=== PATIENT | male | born 1990 | race Caucasian/White ===

== ENCOUNTER 2018-01-15 21:07 | Emergency (ER) | payer OTHER ==
--- NOTE | 2018-01-15 21:54 | ER ---
Nurse's Notes [facility] Name: Will Solano Age: 27 yrs Sex: Male : 1990 Arrival Date: 01/15/2018 Time: 21:17 Bed 10 Private MD: None, None Diagnosis: Otitis media, unspecified, left ear Presentation: 01/15 21:17 Presenting complaint: Patient states: that since Sunday he has been having left ear fc pain and pressure. Is now unable to hear out of the left ear. Also states that he thinks it is full of fluid. Transition of care: patient was not received from another setting of care. Onset of symptoms was January 13, 2018. Risk Assessment: Do you want to hurt yourself or someone else? Patient reports no desire to harm self or others. Initial Sepsis Screen: Does the patient meet any 2 criteria? No. Patient's initial sepsis screen is negative. Does the patient have a suspected source of infection? No. Patient's initial sepsis screen is negative. Care prior to arrival: Medication(s) given: Tylenol, last dose at 1300. 21:17 Method Of Arrival: Ambulatory fc 21:17 Acuity: ELLEN 4 fc Triage Assessment: 21:19 General: Appears uncomfortable, well groomed, Behavior is calm, cooperative, fc appropriate for age. Pain: Complains of pain in left ear Pain currently is 6 out of 10 on a pain scale. Quality of pain is described as pressure, Pain began 2-3 days ago. Is continuous. EENT: Reports pain in left ear ringing alternating with no hearing at all. Neuro: Level of Consciousness is awake, alert, obeys commands, Oriented to person, place, time, situation. Cardiovascular: No deficits noted. Respiratory: No deficits noted. GI: No deficits noted. : No deficits noted. Derm: Skin is pink, warm \T\ dry. Musculoskeletal: Circulation, motion, and sensation intact. Capillary refill < 3 seconds. Historical: - Allergies: 21:19 PENICILLINS; fc - Home Meds: 21:19 None [Active]; fc - PMHx: 21:19 None; fc - PSHx: 21:19 None; fc - Immunization history:: Last tetanus immunization: unknown. - Social history:: Smoking status: Patient/guardian denies using tobacco. - Ebola Screening: : Patient negative for fever greater than or equal to 101.5 degrees Fahrenheit, and additional compatible Ebola Virus Disease symptoms Patient denies exposure to infectious person Patient denies travel to an Ebola-affected area in the 21 days before illness onset. Screenin:21 Abuse screen: Denies threats or abuse. Nutritional screening: No deficits noted. Tuberculosis screening: No symptoms or risk factors identified. Fall Risk None identified. Assessment: 21:41 General: Appears in no apparent distress. comfortable, Behavior is calm, cooperative, ao appropriate for age. Pain: Complains of pain in left ear Pain does not radiate. Pain currently is 8 out of 10 on a pain scale. Neuro: Level of Consciousness is awake, alert, obeys commands, Oriented to person, place, time, situation, Appropriate for age Moves all extremities. Full function Speech is normal, Facial symmetry appears normal. Cardiovascular: Capillary refill < 3 seconds Patient's skin is warm and dry. Respiratory: Airway is patent Respiratory effort is even, unlabored, Respiratory pattern is regular, symmetrical. GI: No signs and/or symptoms were reported involving the gastrointestinal system. Abdomen is non-distended. : No signs and/or symptoms were reported regarding the genitourinary system. EENT: No signs and/or symptoms were reported regarding the EENT system. Derm: Skin is pink, warm \T\ dry. normal, Skin temperature is warm. Musculoskeletal: No signs and/or symptoms reported regarding the musculoskeletal system. Range of motion: intact in all extremities. Vital Signs: 21:21 BP 136 / 95; Pulse 74; Resp 20; Temp 98.6(O); Pulse Ox 99% on R/A; Weight 108.86 kg (R); Height 6 ft. 1 in. (185.42 cm) (R); Pain 6/10; 21:21 Body Mass Index 31.66 (108.86 kg, 185.42 cm) ED Course: 21:17 Patient arrived in ED. 21:18 Triage completed. fc 21:19 None, None is Private Physician. fc 21:21 Arm band placed on Patient placed in an exam room, on a stretcher. fc 21:21 Patient has correct armband on for positive identification. Bed in low position. Call light in reach. 21:22 Lei Da Silva, OZZY is Primary Nurse. ao 21:22 Brian Maddox MD is Attending Physician. tw4 22:09 No provider procedures requiring assistance completed. Patient did not have IV access ao during this emergency room visit. Administered Medications: 22:10 Drug: Cleocin 300 mg Route: PO; ao 22:11 Follow up: Response: Medication administered at discharge. ao Outcome: 21:54 Discharge ordered by . tw4 22:09 Discharged to home ambulatory. ao 22:09 Condition: stable 22:09 Discharge instructions given to patient, Instructed on discharge instructions, follow up and referral plans. Demonstrated understanding of instructions, follow-up care, medications, Prescriptions given X 3. 22:11 Patient left the ED. ao Signatures: Chinyere Maria RN RN Lei Da Silva RN RN Brian Quezada MD MD tw4
--- NOTE | 2018-01-15 21:54 | EDPHYS ---
Physician Documentation [facility] Name: Will Solano Age: 27 yrs Sex: Male : 1990 Arrival Date: 01/15/2018 Time: 21:17 Bed 10 Private MD: None, None ED Physician Brian Maddox HPI: 01/15 21:44 This 27 yrs old Male presents to ER via Ambulatory with complaints of Ear tw4 Pain. 21:44 The complaints affect the left ear. Onset: The symptoms/episode began/occurred tw4 yesterday. Modifying factors: The symptoms are alleviated by nothing, the symptoms are aggravated by nothing. Associated signs and symptoms: The patient has no apparent associated signs or symptoms. Severity of symptoms: At their worst the symptoms were very mild in the emergency department the symptoms are unchanged. The patient has not experienced similar symptoms in the past. Historical: - Allergies: 21:19 PENICILLINS; fc - Home Meds: 21:19 None [Active]; fc - PMHx: 21:19 None; fc - PSHx: 21:19 None; fc - Immunization history:: Last tetanus immunization: unknown. - Social history:: Smoking status: Patient/guardian denies using tobacco. - Ebola Screening: : Patient negative for fever greater than or equal to 101.5 degrees Fahrenheit, and additional compatible Ebola Virus Disease symptoms Patient denies exposure to infectious person Patient denies travel to an Ebola-affected area in the 21 days before illness onset. ROS: 21:44 Constitutional: Negative for fever, chills, and weight loss. tw4 21:44 ENT: Positive for ear pain, Negative for injury or acute deformity, drainage from ear(s), foreign body sensation, Gum pain hearing loss, pulling at ears, Teeth pain Exam: 21:44 Constitutional: This is a well developed, well nourished patient who is awake, alert, tw4 and in no acute distress. Head/Face: Normocephalic, atraumatic. 21:44 ENT: External ear(s): are unremarkable, Ear canal(s): are normal, TM's: decreased mobility, on the left, dullness, on the left, erythema, that is moderate, on the left, fluid levels, on the left. Vital Signs: 21:21 BP 136 / 95; Pulse 74; Resp 20; Temp 98.6(O); Pulse Ox 99% on R/A; Weight 108.86 kg (R); Height 6 ft. 1 in. (185.42 cm) (R); Pain 6/10; 21:21 Body Mass Index 31.66 (108.86 kg, 185.42 cm) MDM: 21:22 Patient medically screened. tw4 21:44 Data reviewed: vital signs, nurses notes. Counseling: I had a detailed discussion with [facility] the patient and/or guardian regarding: the historical points, exam findings, and any diagnostic results supporting the discharge/admit diagnosis. Administered Medications: 22:10 Drug: Cleocin 300 mg Route: PO; ao 22:11 Follow up: Response: Medication administered at discharge. ao Disposition: 01/15/18 21:54 Discharged to Home. Impression: Otitis media, unspecified, left ear. - Condition is Stable. - Discharge Instructions: Otitis Media, Adult. - Prescriptions for Cleocin 300 mg Oral Capsule - take 1 capsule by ORAL route every 6 hours for 10 days; 40 capsule. Ibuprofen 800 mg Oral Tablet - take 1 tablet by ORAL route every 8 hours As needed take with food; 30 tablet. Tylenol- Codeine #3 300-30 mg Oral Tablet - take 2 tablet by ORAL route every 6 hours As needed; 30 tablet. - Medication Reconciliation Form, Thank You Letter, Antibiotic Education, Prescription Opioid Use form. - Follow up: Private Physician; When: As needed; Reason: Recheck today's complaints, Re-evaluation by your physician. - Problem is new. - Symptoms have improved. Signatures: Chinyere Maria RN RN Lei Da Silva RN RN Brian Quezada MD MD tw4 Corrections: (The following items were deleted from the chart) 22:11 21:54 01/15/2018 21:54 Discharged to Home. Impression: Otitis media, unspecified, left ao ear. Condition is Stable. Forms are Medication Reconciliation Form, Thank You Letter, Antibiotic Education, Prescription Opioid Use. Follow up: Private Physician; When: As needed; Reason: Recheck today's complaints, Re-evaluation by your physician. Problem is new. Symptoms have improved. tw4 22:11 22:11 01/15/2018 21:54 Discharged to Home. Impression: Otitis media, unspecified, left ao ear. Condition is Stable. Discharge Instructions: Otitis Media, Adult. Prescriptions for Cleocin 300 mg Oral Capsule - take 1 capsule by ORAL route every 6 hours for 10 days; 40 capsule, Ibuprofen 800 mg Oral Tablet - take 1 tablet by ORAL route every 8 hours As needed take with food; 30 tablet, Tylenol-Codeine #3 300-30 mg Oral Tablet - take 2 tablet by ORAL route every 6 hours As needed; 30 tablet. and Forms are Medication Reconciliation Form, Thank You Letter, Antibiotic Education, Prescription Opioid Use. Follow up: Private Physician; When: As needed; Reason: Recheck today's complaints, Re-evaluation by your physician. Problem is new. Symptoms have improved. ao
[2018-01-15] MEDS ORDERED: CLINDAMYCIN HCL 150 MG CAP ONE (22:04)
== END 2018-01-15 22:11 | disposition home or self-care (01) ==
LOC: ER 21:07
DX: H66.92 Otitis media, unspecified, left ear (principal); Z88.0 Allergy status to penicillin
CPT/HCPCS: 99283

== ENCOUNTER 2021-09-16 08:15 | Emergency (ER) | payer OTHER ==
--- OUTSIDE RECORDS SUMMARY | 2021-09-16 08:19 | XMS REPORT | Continuity of Care Document ---
:1990 Author Organization [facility] t Address [address] [place] [address] Care Team Providers Name Role Phone Curt Afsaneh Primary Care Physician Lynette PRECIADO, T Attending Clinician Unavailable Only, Db Test Attending Clinician Unavailable David ELEVATOR SERVICE TECHNICIAN Attending Clinician DAVID Attending Clinician Unavailable Payers Payer Name Policy Type Policy Number Effective Date Expiration Date S ource Problems This patient has no known problems. Allergies, Adverse Reactions, Alerts Allergy Allergy Status Severity Reaction(s) Onset Inactive Treating Comm ents Source Name Type Date Date Clinician NO KNOWN Drug Active [facility] ALLERGIE Class ity of S [facility] Social History Social Habit Start Date Stop Date Quantity Comments Source Exposure to Yes [facility] SARS-CoV-2 (event) Medica l Branch Sex Assigned At [birth year] [facility] 00:00:00 00:00:00 [facility] Smoking Status Start Date Stop Date Source Unknown if ever smoked [facility] Medications Ordered Filled Start Stop Current Ordering Indication Dosage Frequency Signature Comments Components Source Medication Medication Date Date Medication? Clinician (SIG) Name Name No known 2020-07 No Univers medications 2-27 ity of 10:19: [address] Branch No known 2020-07 No Univers medications 2-27 ity of 10:19: [address] Procedures This patient has no known procedures. Encounters Start End Encounter Admission Attending Care Care Encounter Source Date/Time Date/Time Type Type Clinicians Facility Department ID 2021-07-12 2021-07-12 Letter MCKENZIE Ojeda [id number] Univers 00:00:00 00:00:00 (Out) Gosia FITZGERALD [id number] it y of [facility] [id number] [place] as [id number] [address] 2021-07-11 2021-07-11 Laboratory Only, Ang Db Test [facility] [id number] Univers 09:45:00 10:00:00 [id number] [facility] [id number] [place] as JANICE?BLEA [id number] [address] MEDICAL OFFICE BUILDING 2021-07-11 2021-07-11 Outpatient [facility] [id number] Univers 09:45:00 09:45:00 [id number] y [facility] 2021-07-11 2021-07-11 Outpatient R DAVID [facility] [id number] Univers 09:45:00 09:45:00 ANGELY rose o f [facility] 2020-03-02 2020-03-02 Outpatient R [facility] [id number] Univers 08:20:00 08:20:00 [facility] Results This patient has no known results.
[2021-09-16] MEDS ORDERED: NA CHLORIDE 0.9% 1,000 ML ONE (08:46)
[2021-09-16] MEDS ORDERED: FAMOTIDINE 20 MG/2 ML VIAL IV ONE (08:46)
[2021-09-16] MEDS ORDERED: DIPHENHYDRAMINE 50 MG/ML VIAL ONE (08:46)
[2021-09-16] MEDS ORDERED: dexAMETHasone 10 MG/ML VIAL ONE (08:46)
--- NOTE | 2021-09-16 11:42 | EDPHYS ---
Physician Documentation [facility] Name: Will Solano Age: 30 yrs Sex: Male : 1990 Arrival Date: 09/16/2021 Time: 08:16 Bed 5 Private MD: SONJA Physician Kwame Martins HPI: 09/16 08:32 This 30 yrs old Male presents to ER via Ambulatory with complaints of Allergic Reaction.jmm 08:32 The patient presents with localized swelling. Onset: The symptoms/episode jmm began/occurred today. Associated signs and symptoms: Pertinent positives: Rash. Possible causes: JOHN inhibitor. This is a 30-year-old male with history of hypertension that presents ER with complaints of swelling to his tongue, throat beginning earlier today. Also complains of rash on his chest and arms. Patient does take losartan daily for blood pressure but has not taken it today. Also recently finished a course of azithromycin.. Historical: - Allergies: 08:20 PENICILLINS; ww - Home Meds: 08:20 losartan 25 mg oral tab [Active]; Flonase 50 mcg/actuation Nasal spsn [Active]; ww - PMHx: 08:20 Hypertensive disorder; ww - Immunization history:: Adult Immunizations up to date. - Social history:: Smoking status: Patient denies any tobacco usage or history of. ROS: 08:32 Constitutional: Negative for fever, chills, and weight loss, Cardiovascular: Negative jmm for chest pain, palpitations, and edema, Respiratory: Negative for shortness of breath, cough, wheezing, and pleuritic chest pain. 08:32 Back: Negative for injury and pain. 08:32 ENT: Positive for sore throat. 08:32 Skin: Positive for rash. 08:32 All other systems are negative. Exam: 08:32 Constitutional: This is a well developed, well nourished patient who is awake, alert, jmm and in no acute distress. Head/Face: atraumatic. Eyes: EOMI, no conjunctival erythema appreciated ENT: Moist Mucus Membranes Neck: Trachea midline, Supple 08:32 Cardiovascular: Regular rate and rhythm. No edema appreciated Respiratory: Normal respirations, no respiratory distress appreciated Abdomen/GI: Non distended, soft Back: Normal ROM MS/ Extremity: Moves all extremities, no obvious deformities appreciated, no edema noted to the lower extremities 08:32 ENT: No pharyngeal edema no pharyngeal edema noted. 08:32 Skin: Rash rash noted to the chest and the arms. 08:32 Neuro: Orientation: is normal, Mentation: is normal, Memory: is normal. 08:32 Psych: Behavior/mood is pleasant, cooperative. Vital Signs: 08:18 BP 149 / 88; Pulse 117; Resp 16; Temp 98.1; Pulse Ox 97% ; Weight 113.4 kg; Height 6 ww ft. 1 in. (185.42 cm); 09:39 BP 129 / 79; Pulse 66; Resp 15; Pulse Ox 98% ; bp 10:24 BP 122 / 84; Pulse 76; Resp 18; Pulse Ox 97% ; Pain 0/10; jh6 11:36 BP 124 / 82; Pulse 85; Resp 20; Pulse Ox 98% ; bp 08:18 Body Mass Index 32.98 (113.40 kg, 185.42 cm) ww MDM: 08:24 Patient medically screened. [facility] 11:41 Data reviewed: vital signs, nurses notes. Counseling: I had a detailed discussion with jez the patient and/or guardian regarding: the historical points, exam findings, and any diagnostic results supporting the discharge/admit diagnosis, lab results, the need for outpatient follow up, to return to the emergency department if symptoms worsen or persist or if there are any questions or concerns that arise at home. ED course: Patient is alert and nontoxic in appearance in the ED. Rash is resolved. No pharyngeal edema appreciated on reexamination. Patient states feeling much better. Patient vies follow-up PCP and otherwise given strict return precautions. Patient understood agrees plan of care.. 04 08:37 Order name: Saline Lock; Complete Time: 08:38 [facility] Administered Medications: 08:45 Drug: NS 0.9% 1000 ml Route: IV; Rate: 1 bolus; Site: left antecubital; bp 11:58 Follow up: IV Status: Completed infusion; IV Intake: 1000ml bp 08:45 Drug: Pepcid (famotidine) 20 mg Route: IVP; Site: left antecubital; bp 11:58 Follow up: Response: Marked relief of symptoms bp 08:45 Drug: Decadron - Dexamethasone 10 mg Route: IVP; Site: left antecubital; bp 11:58 Follow up: Response: Marked relief of symptoms bp 08:45 Drug: diphenhydrAMINE 12.5 mg Route: IVP; Site: left antecubital; bp 11:59 Follow up: Response: Marked relief of symptoms bp Disposition Summary: 09/16/21 11:41 Discharge Ordered Location: Home jm Condition: Stable jmm Diagnosis - Rash and other nonspecific skin eruption jmm Followup: jmm - With: Private Physician - When: 2 - 3 days - Reason: Recheck today's complaints, Continuance of care, Re-evaluation by your physician Discharge Instructions: - Discharge Summary Sheet jm - Rash, Adult jmm Forms: - Medication Reconciliation Form [facility] - Thank You Letter [facility] - Antibiotic Education m - Prescription Opioid Use jm Prescriptions: - EpiPen 0.3 mg/0.3 mL Injection auto-injector - inject 0.3 milliliter by INTRAMUSCULAR route as directed as needed for jmm anaphylaxis; 1 Pen Needle; Refills: 0, Product Selection Permitted - Hydroxyzine HCl 25 mg Oral Tablet - take 1 tablet by ORAL route every 6 hours As needed; 30 tablet; Refills: 0, [facility] Product Selection Permitted - Prednisone 20 mg Oral Tablet - take 3 tablets by ORAL route once daily for 5 days; 15 tablet; Refills: 0, [facility] Product Selection Permitted Signatures: Kwame Martins MD MD cha Mickail, Joel, PA PA jmm Peltier, Brian, Jennifer Barnard RN, RN RN ww
--- NOTE | 2021-09-16 11:42 | ER ---
Nurse's Notes [facility] Name: Will Solano Age: 30 yrs Sex: Male : 1990 Arrival Date: 09/16/2021 Time: 08:16 Bed 5 Private MD: Diagnosis: Rash and other nonspecific skin eruption Presentation: 09/16 08:18 Chief complaint: Patient states: Noticed swelling in his throat and tongue this ww morning. Complaining of itching in the groin region, arms, back and legs. Denies any shortness of breath. He has currently been taking a z-little and flonase for an ear infection. He had a previous reaction 2 months ago. Coronavirus screen: Vaccine status: Patient reports receiving the 2nd dose of the covid vaccine. Ebola Screen: Patient denies travel to an Ebola-affected area in the 21 days before illness onset. Onset: The symptoms/episode began/occurred acutely, suddenly. Anaphylaxis evaluation, angioedema. Initial Sepsis Screen: Does the patient meet any 2 criteria? No. Patient's initial sepsis screen is negative. Does the patient have a suspected source of infection? No. Patient's initial sepsis screen is negative. Risk Assessment: Do you want to hurt yourself or someone else? Patient reports no desire to harm self or others. Onset of symptoms was September 16, 2021. 08:18 Method Of Arrival: Ambulatory 08:18 Acuity: ELLEN 3 08:20 Chief complaint:. Triage Assessment: 08:20 General: Appears uncomfortable, Behavior is cooperative. Pain: Denies pain. EENT: ww Throat is reddened. Neuro: Level of Consciousness is awake, alert, obeys commands, Oriented to person, place, time, situation, Gait is steady, Speech is normal. Cardiovascular: Chest pain is denied. Respiratory: Airway is patent Respiratory effort is even, unlabored, Respiratory pattern is regular, symmetrical. Derm: Skin is healthy with good turgor, Rash noted that is itchy. Musculoskeletal: No signs and/or symptoms reported regarding the musculoskeletal system. Historical: - Allergies: 08:20 PENICILLINS; ww - Home Meds: 08:20 losartan 25 mg oral tab [Active]; Flonase 50 mcg/actuation Nasal spsn [Active]; ww - PMHx: 08:20 Hypertensive disorder; ww - Immunization history:: Adult Immunizations up to date. - Social history:: Smoking status: Patient denies any tobacco usage or history of. Screenin:38 Abuse screen: Denies threats or abuse. Denies injuries from another. Nutritional ww screening: No deficits noted. Tuberculosis screening: No symptoms or risk factors identified. Fall Risk None identified. Assessment: 08:20 General: SEE TRIAGE NOTE. bp 09:30 Respiratory: Airway is patent Breath sounds are clear bilaterally. bp 10:22 Reassessment: Patient and/or family updated on plan of care and expected duration. Pain jh6 level reassessed. Patient is alert, oriented x 3, equal unlabored respirations, skin warm/dry/pink. pt reports that hes not feeling as tight and that the swelling is decreased Patient states feeling better. Patient states symptoms have improved. 11:36 Reassessment: Patient and/or family updated on plan of care and expected duration. Pain bp level reassessed. Patient states feeling better. Patient states symptoms have improved. 11:57 Reassessment: PT D/C HOME AMBULATORY, DX WITH RASH. Respiratory: Airway is patent bp Respiratory effort is even, unlabored. Vital Signs: 08:18 BP 149 / 88; Pulse 117; Resp 16; Temp 98.1; Pulse Ox 97% ; Weight 113.4 kg; Height 6 ww ft. 1 in. (185.42 cm); 09:39 BP 129 / 79; Pulse 66; Resp 15; Pulse Ox 98% ; bp 10:24 BP 122 / 84; Pulse 76; Resp 18; Pulse Ox 97% ; Pain 0/10; jh6 11:36 BP 124 / 82; Pulse 85; Resp 20; Pulse Ox 98% ; bp 08:18 Body Mass Index 32.98 (113.40 kg, 185.42 cm) ww ED Course: 08:16 Patient arrived in ED. am2 08:19 Humble Hernandez PA is PHCP. [facility] 08:19 Kwame Martins MD is Attending Physician. [facility] 08:20 Triage completed. ww 08:20 Arm band placed on right wrist. ww 08:28 Efrem Rodriguez, OZZY is Primary Nurse. bp 08:38 Patient has correct armband on for positive identification. Bed in low position. Call ww light in reach. Side rails up X 1. color television console monitor on. Pulse ox on. NIBP on. 08:38 Inserted saline lock: 20 gauge in left antecubital area, using aseptic technique. Blood ww collected. 11:57 No provider procedures requiring assistance completed. IV discontinued, intact, bp bleeding controlled, No redness/swelling at site. Pressure dressing applied. Administered Medications: 08:45 Drug: NS 0.9% 1000 ml Route: IV; Rate: 1 bolus; Site: left antecubital; bp 11:58 Follow up: IV Status: Completed infusion; IV Intake: 1000ml bp 08:45 Drug: Pepcid (famotidine) 20 mg Route: IVP; Site: left antecubital; bp 11:58 Follow up: Response: Marked relief of symptoms bp 08:45 Drug: Decadron - Dexamethasone 10 mg Route: IVP; Site: left antecubital; bp 11:58 Follow up: Response: Marked relief of symptoms bp 08:45 Drug: diphenhydrAMINE 12.5 mg Route: IVP; Site: left antecubital; bp 11:59 Follow up: Response: Marked relief of symptoms bp Intake: 11:58 IV: 1000ml; Total: 1000ml. bp Outcome: 11:41 Discharge ordered by MD. story 11:57 Discharged to home ambulatory. bp 11:57 Condition: stable 11:57 Discharge instructions given to patient, Instructed on discharge instructions, follow up and referral plans. medication usage, Demonstrated understanding of instructions, follow-up care, medications, Prescriptions given X 3. 11:59 Patient left the ED. bp Signatures: Humble Hernandez PA PA jmm Moreno, Amanda am2 Efrem Rodriguez RN RN bp Jackie Collins RN RN 6 Jennifer Bergman, OZZY RN ww Corrections: (The following items were deleted from the chart) 08:22 08:18 Chief complaint: Patient states: Noticed swelling in his throat and tongue this ww morning. Complaining of itching in the groin region, arms, back and legs. Denies any shortness of breath. ww
[2021-09-16 12:03] VITALS: TEMP 98.1
[2021-09-16 12:07] VITALS: BP 124/82; O2SAT 98
== END 2021-09-16 11:59 | disposition home or self-care (01) ==
LOC: ER 08:15
DX: R21 Rash and other nonspecific skin eruption (principal); I10 Essential (primary) hypertension; Z88.0 Allergy status to penicillin
CPT/HCPCS: 96361; 96375; 96374; 99284; J1200; J1100; J7030

== ENCOUNTER 2021-09-21 10:35 | Observation (INO) | payer OTHER ==
--- OUTSIDE RECORDS SUMMARY | 2021-09-21 10:38 | XMS REPORT | Continuity of Care Document ---
:1990 Author Organization [facility] t Address [address] [place] [address] Care Team Providers Name Role Phone Curt Afsaneh Primary Care Physician Lynette PRECIADO, T Attending Clinician Unavailable Only, Db Test Attending Clinician Unavailable David DIRECTOR [employer] Attending Clinician DAVID Attending Clinician Unavailable Payers Payer Name Policy Type Policy Number Effective Date Expiration Date S ource Problems This patient has no known problems. Allergies, Adverse Reactions, Alerts Allergy Allergy Status Severity Reaction(s) Onset Inactive Treating Comm ents Source Name Type Date Date Clinician NO KNOWN Drug Active Univers ALLERGIE Class ity of S [facility] Social History Social Habit Start Date Stop Date Quantity Comments Source Exposure to Yes [facility] SARS-CoV-2 (event) Medica l Branch Sex Assigned At [birth year] [facility] 00:00:00 00:00:00 [facility] Smoking Status Start Date Stop Date Source Unknown if ever smoked [facility] Medications Ordered Filled Start Stop Current Ordering Indication Dosage Frequency Signature Comments Components Source Medication Medication Date Date Medication? Clinician (SIG) Name Name No known 2020-07 No Univers medications 2-27 ity of 10:19: [address] Branch No known 2020-07 No Univers medications 2-27 ity of 10:19: [address] Procedures This patient has no known procedures. Encounters Start End Encounter Admission Attending Care Care Encounter Source Date/Time Date/Time Type Type Clinicians Facility Department ID 2021-07-12 2021-07-12 Letter MCKENZIE Ojeda [id number] Univers 00:00:00 00:00:00 (Out) Gosia FITGZERALD [id number] it y of [facility] [id number] Dexter as [phone] [address] 2021-07-11 2021-07-11 Laboratory Only, Ang Db Test [facility] [id number] Univers 09:45:00 10:00:00 [id number] [id number] Dexter as JANICE?BLEA [phone] [address] MEDICAL OFFICE BUILDING 2021-07-11 2021-07-11 Outpatient [facility] [id number] Univers 09:45:00 09:45:00 [id number] [facility] 2021-07-11 2021-07-11 Outpatient R DAVID [facility] [id number] Univers 09:45:00 09:45:00 ANGELY rose o f [facility] 2020-03-02 2020-03-02 Outpatient R [facility] [id number] Univers 08:20:00 08:20:00 [facility] Results This patient has no known results.
[2021-09-21] MEDS ORDERED: DIPHENHYDRAMINE 50 MG/ML VIAL ONE (10:44)
[2021-09-21] MEDS ORDERED: METHYLPREDNISOLONE 125 MG INJ ONE (10:44)
[2021-09-21] MEDS ORDERED: FAMOTIDINE 20 MG/2 ML VIAL IV ONE (10:44)
[2021-09-21] MEDS ORDERED: EPINEPHRINE/PF 1 MG/ML AMP ONE (10:45)
[2021-09-21] MEDS ORDERED: NA CHLORIDE 0.9% 1,000 ML ONE ×2 (10:45→10:48)
[2021-09-21] MEDS ORDERED: IPRATROPIUM BROM 0.5MG/2.5ML ONE (10:57)
[2021-09-21 10:59] LABS: Absolute Lymphocytes (CBC) 6.2 K/uL (0.7-4.9); Hematocrit 45.9 % (39.6-49.0); Lymphocytes % 36.6 % (15.3-44.8); MPV 7.6 fL (7.6-11.3); RBC Red Blood Cell Count 5.42 M/uL (4.33-5.43)
[2021-09-21 11:03] LABS: Protime INR 1.04
[2021-09-21 11:19] LABS: ALT/SGPT 57 U/L (12-78); AST/SGOT 16 U/L (15-37); Alkaline Phosphatase 56 U/L (45-117); BUN Blood Urea Nitrogen 15 mg/dL (7-18); Bicarbonate 25 mmol/L (21-32); Bilirubin Direct 0.2 mg/dL (0-0.2); Bilirubin Total 0.7 mg/dL (0.2-1.0); Glucose Level 154 mg/dL (74-106); Magnesium 2.5 mg/dL (1.8-2.4); NT PRO-BNP 20 pg/mL (<125); Potassium 3.7 mmol/L (3.5-5.1); Protein, Total 7.6 g/dL (6.4-8.2); Sodium Level 139 mmol/L (136-145)
[2021-09-21 11:23] LABS: Troponin High Sensitivity < 3.00 pg/mL (<58.9)
[2021-09-21 11:47] LABS: Blood Morphology Comment NOT SEEN (NOT SEEN); Platelet Estimate ADEQ
--- NOTE | 2021-09-21 11:50 | ER ---
Nurse's Notes [facility] Name: Will Solano Age: 30 yrs Sex: Male : 1990 Arrival Date: 09/21/2021 Time: 10:37 Bed 13 Private MD: Diagnosis: Urticaria, unspecified;Anaphylactic reaction due to adverse effect of correct drug or medicament properly administered, initial encounter;Hypotension, unspecified Presentation: 09/21 10:37 Chief complaint: Witnessed fall by ER registration upon entrance to ER. Pt was found on aa5 prone position, pt states "I just fell because I was lightheaded", pt was assisted to ER stretcher and moved to ER room 13. Pt states "I was just seen here for an allergic reaction a few days ago and I started with a reaction again about 30 minutes ago so I took a hydroxyzine and a Benadryl". Pt pale and clammy at this time. Pt c/o rash and states "my throat feels a little swollen". Pt denies head injury during fall. 10:37 Anaphylaxis evaluation, the patient reports or I have noted the following symptoms aa5 which indicate a significant risk of anaphylaxis: hypotension lightheadedness. Onset of symptoms was September 21, 2021. 10:37 Acuity: ELLEN 2 aa5 10:37 Method Of Arrival: Stretcher aa5 Historical: - Allergies: 10:37 PENICILLINS; aa5 - PMHx: 10:37 Hypertensive disorder; aa5 - Family history:: not pertinent. Assessment: 10:40 General: Appears distressed, diaphoretic, dusky color in face, hands. Behavior is calm, cb5 cooperative. Pain: Denies pain. Neuro: Level of Consciousness is awake, alert, obeys commands, Oriented to person, place, time, situation, Aadc Plans Staff Officer are equal bilaterally Moves all extremities. Speech is normal, Facial symmetry appears normal. Cardiovascular: skin diaphoretic to the touch, nail beds slightly dusky in color, capillary refill <3 sec. Lips dusky in color.. Rhythm is sinus rhythm. Respiratory: Airway is patent Respiratory effort is even, Breath sounds are clear. GI: No deficits noted. : No deficits noted. EENT: No deficits noted. Derm: small abrasion to left knee. Musculoskeletal: No deficits noted. 11:56 Reassessment: Patient and/or family updated on plan of care and expected duration. Pain cb5 level reassessed. 14:32 General: attempted to call report to floor nurse, she will call back. cb5 Vital Signs: 10:36 BP 74 / 45; Pulse 57; Resp 20; Pulse Ox 99% ; cb5 10:42 BP 96 / 42; Pulse 66; Resp 16; Pulse Ox 98% ; cb5 10:55 BP 108 / 73; Pulse 74; Resp 18; Pulse Ox 100% ; cb5 11:00 BP 99 / 84; Pulse 74; Resp 18; Pulse Ox 100% ; cb5 11:10 BP 127 / 90; Pulse 73; Resp 16; Pulse Ox 100% ; cb5 11:20 BP 121 / 81; Pulse 65; Resp 18; Pulse Ox 100% ; cb5 11:20 BP 122 / 83; Pulse 70; Resp 16; Pulse Ox 100% ; cb5 11:25 BP 137 / 86; Pulse 77; Resp 16; Pulse Ox 100% ; cb5 11:45 BP 138 / 90; Pulse 93; Resp 18; Pulse Ox 100% ; Pain 0/10; cb5 12:30 BP 144 / 95; Pulse 114; Resp 16; Pulse Ox 98% ; Pain 0/10; cb5 ED Course: 10:37 Patient arrived in ED. bd 10:37 Arm band placed on Patient placed in an exam room, on a stretcher. aa5 10:38 Kwame Martins MD is Attending Physician. urbano 10:49 Inserted saline lock: 20 gauge in right antecubital area, using aseptic technique. ap3 Blood collected. 10:50 Basic Metabolic Panel Sent. ab2 10:50 CBC with Diff Sent. ab2 10:50 LFT's Sent. ab2 10:50 Magnesium Sent. ab2 10:50 NT PRO-BNP Sent. ab2 10:51 PT-INR Sent. ab2 10:51 Troponin HS Sent. ab2 10:53 Triage completed. aa5 10:55 Inserted saline lock: 20 gauge in left antecubital area, using aseptic technique. ap3 11:16 Anabel Dougherty, OZZY is Primary Nurse. cb5 11:41 Uday Garg MD is Hospitalizing Provider. urbano 12:48 X-ray completed. Portable x-ray completed in exam room. Patient tolerated procedure mh1 well. Administered Medications: 10:49 Drug: Pepcid (famotidine) 40 mg Route: IVP; Site: right antecubital; ab2 10:49 CANCELLED (Duplicate Order): Benadryl (diphenhydrAMINE) 25 mg IVP once ab2 10:49 CANCELLED (Duplicate Order): SOLU-Medrol (methylPrednisoLONE) 125 mg IVP once ab2 10:49 CANCELLED (Duplicate Order): NS 0.9% 2000 ml IV at 1 bolus Per protocol; 1000 mL bolus ab2 10:49 CANCELLED (Duplicate Order): Pepcid (famotidine) 40 mg IVP once; dilute with 10 mL 0.9% ab2 NaCl; give over 2 minutes 10:50 Drug: NS 0.9% 1000 ml Route: IV; Rate: 1 bolus; Site: left antecubital; ab2 10:50 Drug: NS 0.9% 1000 ml Route: IV; Rate: 1 bolus; Site: right antecubital; ab2 10:50 Drug: Benadryl (diphenhydrAMINE) 25 mg Route: IVP; Site: left antecubital; ab2 10:50 Drug: SOLU-Medrol (methylPrednisoLONE) 125 mg Route: IVP; Site: left antecubital; ab2 10:52 Drug: EPINEPHrine 1mg/mL 1:1,000 0.4 ml Route: Sub-Q; Site: right upper arm; ab2 10:57 Drug: Albuterol - atroVENT (ipratropium) (3:1) (2.5 mg - 0.5 mg) 3 ml Route: Nebulizer; ab2 Outcome: 11:50 Decision to Hospitalize by Provider. urbano 14:52 Patient left the ED. ld1 Signatures: Opal Amado Corey, MD MD cha Harvey, Martha 1 Dana Aiken, RN RN aa5 Grecia Mccollum RN RN maría3 Barbie Thomas RN RN ld1 Anabel Dougherty, OZZY RN cb5 Donald Mensah ab2
--- NOTE | 2021-09-21 11:50 | EDPHYS ---
Physician Documentation [facility] Name: Will Solano Age: 30 yrs Sex: Male : 1990 Arrival Date: 09/21/2021 Time: 10:37 Bed 13 Private MD: ED Physician Kwame Martins HPI: 09/21 10:50 This 30 yrs old Male presents to ER via Unassigned with complaints of urbano Allergic Reaction. 10:50 The patient presents with itching, localized swelling, rash, redness of skin, runny urbano nose, shortness of breath, swelling of the lips. Onset: The symptoms/episode began/occurred just prior to arrival. Associated signs and symptoms: Pertinent positives: nausea, shortness of breath, syncope. Possible causes: losartan. The patient has experienced near-syncope, almost passed out, felt dizzy, felt faint, felt generally weak. At home the patient or guardian has treated the symptoms with Benadryl. Severity of symptoms: At their worst the symptoms were moderate in the emergency department the symptoms are unchanged. Historical: - Allergies: 10:37 PENICILLINS; aa5 - PMHx: 10:37 Hypertensive disorder; aa5 - Family history:: not pertinent. ROS: 10:50 Constitutional: Negative for fever, chills, and weight loss, Eyes: Negative for injury, urbano pain, redness, and discharge, ENT: Negative for injury, pain, and discharge, Neck: Negative for injury, pain, and swelling, Cardiovascular: Negative for chest pain, palpitations, and edema, Respiratory: Negative for shortness of breath, cough, wheezing, and pleuritic chest pain, Abdomen/GI: Negative for abdominal pain, nausea, vomiting, diarrhea, and constipation, Back: Negative for injury and pain, : Negative for injury, bleeding, discharge, and swelling, MS/Extremity: Negative for injury and deformity, Psych: Negative for depression, anxiety, suicide ideation, homicidal ideation, and hallucinations, Allergy/Immunology: Negative for hives, rash, and allergies, Endocrine: Negative for neck swelling, polydipsia, polyuria, polyphagia, and marked weight changes, Hematologic/Lymphatic: Negative for swollen nodes, abnormal bleeding, and unusual bruising. 10:50 Skin: Positive for diaphoresis, pallor. 10:50 Neuro: Positive for near syncope. Exam: 10:50 Constitutional: This is a well developed, well nourished patient who is awake, alert, urbano and in no acute distress. Head/Face: Normocephalic, atraumatic. Eyes: Pupils equal round and reactive to light, extra-ocular motions intact. Lids and lashes normal. Conjunctiva and sclera are non-icteric and not injected. Cornea within normal limits. Periorbital areas with no swelling, redness, or edema. ENT: Nares patent. No nasal discharge, no septal abnormalities noted. Tympanic membranes are normal and external auditory canals are clear. Oropharynx with no redness, swelling, or masses, exudates, or evidence of obstruction, uvula midline. Mucous membranes moist. Neck: Trachea midline, no thyromegaly or masses palpated, and no cervical lymphadenopathy. Supple, full range of motion without nuchal rigidity, or vertebral point tenderness. No Meningismus. Chest/axilla: Normal chest wall appearance and motion. Nontender with no deformity. No lesions are appreciated. Cardiovascular: Regular rate and rhythm with a normal S1 and S2. No gallops, murmurs, or rubs. Normal PMI, no JVD. No pulse deficits. Respiratory: Lungs have equal breath sounds bilaterally, clear to auscultation and percussion. No rales, rhonchi or wheezes noted. No increased work of breathing, no retractions or nasal flaring. Abdomen/GI: Soft, non-tender, with normal bowel sounds. No distension or tympany. No guarding or rebound. No evidence of tenderness throughout. Back: No spinal tenderness. No costovertebral tenderness. Full range of motion. Male : Normal genitalia with no discharge or lesions. MS/ Extremity: Pulses equal, no cyanosis. Neurovascular intact. Full, normal range of motion. Psych: Awake, alert, with orientation to person, place and time. Behavior, mood, and affect are within normal limits. 10:50 Skin: Appearance: Color: flushed, Temperature: normal temperature, Moisture: diaphoretic, petechiae, not noted, ecchymosis, not noted, drug rash, and is diffusely located. 10:55 ECG was reviewed by the Attending Physician. [facility] 14:33 ECG was reviewed by the Attending Physician. [facility] Vital Signs: 10:36 BP 74 / 45; Pulse 57; Resp 20; Pulse Ox 99% ; cb5 10:42 BP 96 / 42; Pulse 66; Resp 16; Pulse Ox 98% ; cb5 10:55 BP 108 / 73; Pulse 74; Resp 18; Pulse Ox 100% ; cb5 11:00 BP 99 / 84; Pulse 74; Resp 18; Pulse Ox 100% ; cb5 11:10 BP 127 / 90; Pulse 73; Resp 16; Pulse Ox 100% ; cb5 11:20 BP 121 / 81; Pulse 65; Resp 18; Pulse Ox 100% ; cb5 11:20 BP 122 / 83; Pulse 70; Resp 16; Pulse Ox 100% ; cb5 11:25 BP 137 / 86; Pulse 77; Resp 16; Pulse Ox 100% ; cb5 11:45 BP 138 / 90; Pulse 93; Resp 18; Pulse Ox 100% ; Pain 0/10; cb5 12:30 BP 144 / 95; Pulse 114; Resp 16; Pulse Ox 98% ; Pain 0/10; cb5 MDM: 10:38 Patient medically screened. urbano 10:54 Differential diagnosis: anaphylaxis, angioedema, Arrhythmias bronchospasm, Seizure urbano urticaria. Differential Diagnosis: cardiac arrhythmia, cerebrovascular accident, drug effect, GI bleed, sepsis, transient ischemic attack, vasovagal episode. Data reviewed: vital signs, nurses notes, lab test result(s), EKG, radiologic studies, plain films. Data interpreted: pvc monitor: rate is 59 beats/min, rhythm is regular. Test interpretation: by ED physician or midlevel provider: ECG, plain radiologic studies. Counseling: I had a detailed discussion with the patient and/or guardian regarding: the historical points, exam findings, and any diagnostic results supporting the discharge/admit diagnosis, lab results, radiology results, the need for outpatient follow up. 09/21 10:49 Order name: Basic Metabolic Panel; Complete Time: 11:39 urbano 09/21 10:49 Order name: CBC with Diff urbano 09/21 10:49 Order name: LFT's; Complete Time: 11:39 urbano 09/21 10:49 Order name: Magnesium; Complete Time: 11:39 urbano 09/21 10:49 Order name: NT PRO-BNP; Complete Time: 11:39 urbano 09/21 10:49 Order name: PT-INR; Complete Time: 11:39 urbano 09/21 10:49 Order name: Troponin HS; Complete Time: 11:39 urbano 09/21 10:56 Order name: Lactate [facility] 09/21 10:56 Order name: Lactate [facility]AR 09/21 10:58 Order name: SARS-COV-2 RT PCR (Document "Date of Onset" if Symptomatic) [facility] 09/21 11:47 Order name: Manual Differential EDMS 09/21 13:06 Order name: CBC with Automated Diff EDMS 09/21 13:06 Order name: CBC with Automated Diff EDMS 09/21 13:06 Order name: Comprehensive Metabolic Panel [facility] 09/21 10:49 Order name: XRAY Chest (1 view) [facility] 09/21 13:06 Order name: Comprehensive Metabolic Panel [facility] 09/21 13:07 Order name: Immunoglobulin E [facility]AR 09/21 13:07 Order name: Immunoglobulin E [facility] 09/21 14:00 Order name: RAD [facility] 09/21 10:49 Order name: EKG; Complete Time: 10:49 [facility] 09/21 10:49 Order name: Cardiac monitoring; Complete Time: 10:51 [facility] 09/21 10:49 Order name: EKG - Nurse/Tech; Complete Time: 10:51 [facility] 09/21 10:49 Order name: IV Saline Lock; Complete Time: 10:51 [facility] 09/21 10:49 Order name: Labs collected and sent; Complete Time: 10:51 [facility] 09/21 10:49 Order name: O2 Per Protocol; Complete Time: 10:51 [facility] 09/21 10:49 Order name: O2 Sat Monitoring; Complete Time: 10:53 [facility] 09/21 13:06 Order name: Heart Healthy EDMS EC:55 Rate is 59 beats/min. Rhythm is regular. QRS [place] is Normal. W[place] interval is normal. QRS urbano interval is normal. QT interval is normal. No Q waves. T waves are Normal. No ST changes noted. Clinical impression: NSR w/ Non-specific ST/T Changes and No evidence of ischemia. Interpreted by me. Reviewed by me. 14:33 Rate is 59 beats/min. Rhythm is regular. QRS [place] is Normal. W[place] interval is normal. QRS urbano interval is normal. QT interval is normal. No Q waves. T waves are Normal. No ST changes noted. Clinical impression: Sinus bradycardia and No evidence of ischemia. Interpreted by me. Reviewed by me. Administered Medications: 10:49 Drug: Pepcid (famotidine) 40 mg Route: IVP; Site: right antecubital; ab2 10:49 CANCELLED (Duplicate Order): Benadryl (diphenhydrAMINE) 25 mg IVP once ab2 10:49 CANCELLED (Duplicate Order): SOLU-Medrol (methylPrednisoLONE) 125 mg IVP once ab2 10:49 CANCELLED (Duplicate Order): NS 0.9% 2000 ml IV at 1 bolus Per protocol; 1000 mL bolus ab2 10:49 CANCELLED (Duplicate Order): Pepcid (famotidine) 40 mg IVP once; dilute with 10 mL 0.9% ab2 NaCl; give over 2 minutes 10:50 Drug: NS 0.9% 1000 ml Route: IV; Rate: 1 bolus; Site: left antecubital; ab2 10:50 Drug: NS 0.9% 1000 ml Route: IV; Rate: 1 bolus; Site: right antecubital; ab2 10:50 Drug: Benadryl (diphenhydrAMINE) 25 mg Route: IVP; Site: left antecubital; ab2 10:50 Drug: SOLU-Medrol (methylPrednisoLONE) 125 mg Route: IVP; Site: left antecubital; ab2 10:52 Drug: EPINEPHrine 1mg/mL 1:1,000 0.4 ml Route: Sub-Q; Site: right upper arm; ab2 10:57 Drug: Albuterol - atroVENT (ipratropium) (3:1) (2.5 mg - 0.5 mg) 3 ml Route: Nebulizer; ab2 Disposition Summary: 09/21/21 11:50 Hospitalization Ordered Hospitalization Status: Observation urbano Provider: Uday Garg cha [facility] urbano Condition: Stable urbano Problem: new urbano Symptoms: have improved urbano Bed/Room Type: Standard [facility] Room Assignment: 215(09/21/21 14:05) bd Diagnosis - Urticaria, unspecified urbano - Anaphylactic reaction due to adverse effect of correct drug or medicament properly urbano administered, initial encounter - Hypotension, unspecified urbano Forms: - Medication Reconciliation Form urbano - SBAR form urbano Signatures: Dispatcher [employer] EDOpal Wright Corey, MD MD cha Calderon, Audri, RN RN aa5 Donald Mensah ab2 Corrections: (The following items were deleted from the chart) 10:49 10:49 Benadryl (diphenhydrAMINE) 25 mg IVP once ordered. ab2 ab2 10:49 10:49 SOLU-Medrol (methylPrednisoLONE) 125 mg IVP once ordered. ab2 ab2 10:49 10:49 NS 0.9% 2000 ml IV at 1 bolus Per protocol; 1000 mL bolus ordered. ab2 ab2 10:49 10:49 Pepcid (famotidine) 40 mg IVP once; dilute with 10 mL 0.9% NaCl; give over 2 ab2 minutes ordered. ab2 14:05 11:50 urbano bd
[2021-09-21] MEDS ORDERED: ACETAMINOPHEN 500 MG TAB PO PRN (13:04)
[2021-09-21] MEDS ORDERED: ONDANSETRON 4 MG/2 ML VIAL IV PRN ×2 (13:04→19:36)
[2021-09-21] MEDS ORDERED: DIPHENHYDRAMINE 25 MG TAB/CAP PO PRN (13:04)
--- NOTE | 2021-09-21 13:58 | RAD REPORT ---
EXAM DESCRIPTION: Too Single View09/21/2021 1:48 pm CLINICAL HISTORY: Cough COMPARISON: none FINDINGS: 15 millimeter nodular opacity left supra hilum. Otherwise lungs appear clear of acute infiltrate. Heart is normal size IMPRESSION: 15 millimeter nodular opacity left supra hilum may represent a pulmonary nodule or confluence of pulm onary vessels. It is recommended patient have a PA and lateral chest series for further evaluation
[2021-09-21 15:29] VITALS: BMI 33.0
[2021-09-21] MEDS: NA CHLORIDE 0.9% 1,000 ML IV SCH ×2 (15:43→20:22)
[2021-09-21] MEDS: METHYLPREDNISOLONE 125 MG INJ IV SCH ×2 (17:17→23:03)
[2021-09-21] MEDS ORDERED: NA CHLORIDE 0.9% 1,000 ML IV ONE ×2 (19:00→21:00)
[2021-09-21] MEDS: FAMOTIDINE 20 MG/2 ML VIAL IV SCH (20:20)
[2021-09-22] MEDS: NA CHLORIDE 0.9% 1,000 ML IV SCH (05:19)
[2021-09-22] MEDS: METHYLPREDNISOLONE 125 MG INJ IV SCH (05:20)
[2021-09-22 06:31] LABS: Absolute Lymphocytes (CBC) 1.8 K/uL (0.7-4.9); Hematocrit 42.1 % (39.6-49.0); Lymphocytes % 10.4 % (15.3-44.8); MPV 7.6 fL (7.6-11.3); RBC Red Blood Cell Count 4.86 M/uL (4.33-5.43)
[2021-09-22 06:53] LABS: ALT/SGPT 54 U/L (12-78); AST/SGOT 13 U/L (15-37); Albumin 3.9 g/dL (3.4-5.0); Alkaline Phosphatase 54 U/L (45-117); BUN Blood Urea Nitrogen 11 mg/dL (7-18); Bicarbonate 26 mmol/L (21-32); Bilirubin Total 0.8 mg/dL (0.2-1.0); Glucose Level 153 mg/dL (74-106); NT PRO-BNP 42 pg/mL (<125); Potassium 4.4 mmol/L (3.5-5.1); Protein, Total 7.6 g/dL (6.4-8.2); Sodium Level 139 mmol/L (136-145)
[2021-09-22 07:34] LABS: Blood Morphology Comment NOT SEEN (NOT SEEN); Platelet Estimate ADEQ
[2021-09-22] MEDS: FAMOTIDINE 20 MG/2 ML VIAL IV SCH (08:39)
[2021-09-22] MEDS ORDERED: FLUTICASONE 50MCG NASAL SPRAY NAS SCH (09:00)
[2021-09-22] MEDS: MONTELUKAST 10 MG TAB PO SCH ×2 (09:48→10:00)
[2021-09-22 11:58] VITALS: BP 141/90; TEMP 98.5
--- NOTE | 2021-09-22 12:13 | P.HP ---
Certification for Inpatient Patient admitted to: Observation With expected LOS: <2 Midnights Patient will require the following post-hospital care: None Practitioner: I am a practitioner with admitting privileges, knowledge of patient current condition, hospital course, and medical plan of care. Services: Services provided to patient in accordance with Admission requirements found in Title 42 Section 412.3 of the Code of Federal Regulations Patient History Date of Service: 09/21/21 Reason for admission: Patient with anaphylaxis History of Present Illness: Patient is a 30yo who was admitted to the hospital with anaphylaxis. patient had apparently taken some NSAIDs and he developed anaphylaxis. patient decided to come into the emergency room for further evaluation. In the ER patient was given Pepcid and steroids as well benadryl. patient was also given Epi. Patient responded appropriately and was admitted for observation. Allergies Penicillins Allergy (Unverified 01/15/18 22:15) Unknown Home Medications: Fluticasone [Flonase 50MCG Nasal Riggins*] 120 gm .ROUTE DAILY 09/21/21 Montelukast [Singulair*] 10 mg PO DAILY 09/21/21 Diphenhydramine [Benadryl*] 25 mg PO Q6H PRN #30 tab 09/22/21 Epinephrine [Epipen] 0.3 mg IJ PRN PRN #1 auto.injct 09/22/21 predniSONE [Deltasone] 20 mg PO BID #11 tab 09/22/21 - Past Medical/Surgical History Has patient received pneumonia vaccine in the past: No Diabetic: No -: HTN -: Allergic rhinitis Past Surgical History: Patient denies surgical history - Family History Father Family History: Reviewed- Non-Contributory - Social History Smoking Status: Never smoker Alcohol use: No CD- Drugs: No Caffeine use: Yes Place of Residence: Home Review of Systems 10-point ROS is otherwise unremarkable Physical Examination - Vital Signs Temperature: 98.5 F Blood Pressure: 141/90 Pulse: 89 Respirations: 16 Pulse Ox (%): 99 - Physical Exam General: Alert, In no apparent distress, Oriented x3 HEENT: Atraumatic, PERRLA, Mucous membr. moist/pink, EOMI, Sclerae nonicteric Neck: Supple, 2+ carotid pulse no bruit, No LAD, Without JVD or thyroid abnormality Respiratory: Clear to auscultation bilaterally, Normal air movement Cardiovascular: Regular rate/rhythm, Normal S1 S2 Gastrointestinal: Normal bowel sounds, Soft and benign, Non-distended, No tenderness Musculoskeletal: No clubbing, No swelling, No tenderness Integumentary: No rashes Neurological: Normal gait, Normal speech, Normal strength at 5/5 x4 extr, Normal tone, Normal affect Lymphatics: No axilla or inguinal lymphadenopathy Assessment & Plan - Problems (Diagnosis) (1) Anaphylactic reaction Current Visit: Yes Status: Acute (2) Hypotension Current Visit: Yes Status: Acute (3) Allergy to NSAIDs Current Visit: Yes Status: Acute (4) Allergy to angiotensin receptor blockers (ARB) Current Visit: Yes Status: Acute - Plan PLAN: 1. IVFs 2. Steroids 3. Antihistamine 4. Echo 5. Possible DC in the AM 6. Outpt follow-up with paper novelty maker Discharge Plan: Home Plan to discharge in: Greater than 2 days - Advance Directives Does patient have a Living Will: No Does patient have a Durable POA for Healthcare: No - Code Status/Comfort Care Code Status Assessed: Yes Code Status: Full Code Critical Care: No Time Spent Managing PTS Care (In Minutes): 45
--- NOTE | 2021-09-22 12:15 | P.DS ---
Discharge Date: 09/22/21 Disposition: ROUTINE DISCHARGE Discharge Condition: GOOD Reason for Admission: Patient with anaphylaxis - Problems (1) Anaphylactic reaction Current Visit: Yes Status: Acute (2) Hypotension Current Visit: Yes Status: Acute (3) Allergy to NSAIDs Current Visit: Yes Status: Acute (4) Allergy to angiotensin receptor blockers (ARB) Current Visit: Yes Status: Acute Brief History of Present Illness: Patient is a 30yo who was admitted to the hospital with anaphylaxis. patient had apparently taken some NSAIDs and he developed anaphylaxis. patient decided to come into the emergency room for further evaluation. In the ER patient was given Pepcid and steroids as well benadryl. patient was also given Epi. Patient responded appropriately and was admitted for observation. Hospital Course: Patient's echo was normal. Patient's symptoms resolved. Plan to DC with outpt hair stylist Vital Signs/Physical Exam: Temp Pulse Resp BP Pulse Ox 98.5 F 89 16 141/90 H 99 09/22/21 12:13 09/22/21 12:13 09/22/21 12:13 09/22/21 12:13 09/22/21 12:13 General: Alert, In no apparent distress, Oriented x3 Laboratory Data at Discharge: WBC 17.20 K/uL (4.3-10.9) H 09/22/21 06:20 Hgb 13.8 g/dL (13.6-17.9) 09/22/21 06:20 Hct 42.1 % (39.6-49.0) 09/22/21 06:20 Plt Count 335 K/uL (152-406) D 09/22/21 06:20 PT 12.0 SECONDS (9.5-12.5) 09/21/21 10:45 INR 1.04 09/21/21 10:45 Sodium 139 mmol/L (136-145) 09/22/21 06:20 Potassium 4.4 mmol/L (3.5-5.1) 09/22/21 06:20 BUN 11 mg/dL (7-18) 09/22/21 06:20 Creatinine 0.80 mg/dL (0.55-1.3) 09/22/21 06:20 Glucose 153 mg/dL (74-106) H 09/22/21 06:20 Magnesium 2.5 mg/dL (1.8-2.4) H 09/21/21 10:45 Total Bilirubin 0.8 mg/dL (0.2-1.0) 09/22/21 06:20 AST 13 U/L (15-37) L 09/22/21 06:20 ALT 54 U/L (12-78) 09/22/21 06:20 Alkaline Phosphatase 54 U/L (45-117) 09/22/21 06:20 Home Medications: Fluticasone [Flonase 50MCG Nasal [place]*] 120 gm .ROUTE DAILY 09/21/21 Montelukast [Singulair*] 10 mg PO DAILY 09/21/21 Diphenhydramine [Benadryl*] 25 mg PO Q6H PRN #30 tab 09/22/21 Epinephrine [Epipen] 0.3 mg IJ PRN PRN #1 auto.injct 09/22/21 predniSONE [Deltasone] 20 mg PO BID #11 tab 09/22/21 New Medications: Diphenhydramine [Benadryl*] 25 mg PO Q6H PRN #30 tab PRN Reason: Itching Epinephrine [Epipen] 0.3 mg IJ PRN PRN #1 auto.injct PRN Reason: anaphylaxis predniSONE [Deltasone] 20 mg PO BID #11 tab Physician Discharge Instructions: -DC IV and DC home -Follow-up with PCP in 1 to 2 weeks -Follow-up with Line Construction Engineer in 1 to 2 weeks -Please call Dr. Garg at [phone] if any questions regarding hospital stay -Please call nursing station at [phone] if any nursing or medication questions -Return to the emergency room if symptoms worsen Diet: AHA Activity: Fall precautions Followup: NONE,NONE [Primary Care Provider] - Time spent managing pt's care (in minutes): 35
[2021-09-22 12:18] VITALS: O2SAT 97
--- NOTE | 2021-09-23 07:09 | ECHO ---
HEIGHT: 6 ft 1 in WEIGHT: 250 lb 0 oz DATE OF STUDY: 09/22/[address]: Uday Garg MD 2-DIMENSIONAL: YES M.MODE: YES DOPPLER: YES COLOR FLOW: YES TDS: NO PORTABLE: NO DEFINITY: NO BUBBLE STUDY: NO DIAGNOSIS: HYPOTENSION CARDIAC HISTORY: CATHERIZATION: NO SURGERY: NO PROSTHETIC VALVE: NO PACEMAKER: NO MEASUREMENTS (cm) DIASTOLIC (NORMALS) SYSTOLIC (NORMALS) IVSd 1.1 (0.6-1.2) LA Diam 3.4 (1.9-4.0) LVEF 59% LVIDd 5.1 (3.5-5.7) LVIDs 3.5 (2.0-3.5) %FS 32% LVPWd 0.9 (0.6-1.2) Ao Diam 2.8 (2.0-3.7) 2 DIMENSIONAL ASSESSMENT: RIGHT ATRIUM: NORMAL LEFT ATRIUM: NORMAL RIGHT VENTRICLE: NORMAL LEFT VENTRICLE: NORMAL TRICUSPID VALVE: NORMAL MITRAL VALVE: NORMAL PULMONIC VALVE: NORMAL AORTIC VALVE: NORMAL PERICARDIAL EFFUSION: NONE AORTIC ROOT: NORMAL LEFT VENTRICULAR WALL MOTION: NORMAL DOPPLER/COLOR FLOW: MILD TRICUSPID AND MITRAL REGURGITATION. COMMENTS: NORMAL LEFT VENTRICULAR EJECTION FRACTION 55-60%. NORMAL WALL MOTION. MILD TRICUSPID, PULMONARY AND MITRAL REGURGITATION. NORMAL DIASTOLIC FUNCTION. TECHNOLOGIST: Marge GRIGSBY
== END 2021-09-22 12:10 | disposition home or self-care (01) ==
LOC: ER 10:35 → ERHOLD 13:04 → 2ND 14:47
PROVIDERS: ADMIT Hospitalist; ATTEND Hospitalist
DX: T88.6XXA Anaphylactic reaction due to adverse effect of correct drug or medicament properly administered, initial encounter (principal); T39.395A Adverse effect of other nonsteroidal anti-inflammatory drugs [NSAID], initial encounter; I95.9 Hypotension, unspecified; L50.9 Urticaria, unspecified; I10 Essential (primary) hypertension; J30.9 Allergic rhinitis, unspecified; Z88.8 Allergy status to other drugs, medicaments and biological substances; Z88.0 Allergy status to penicillin; Z20.822 Contact with and (suspected) exposure to COVID-19
CPT/HCPCS: 93005; 93306; 87040 ×2; 85025 ×2; 80048; 36415 ×2; 83735; 85610; 80076; 83605 ×5; 84484; 80053; 84145; 83880 ×2; 82785; 71045; 94640; 96372; 99285; U0003; J0171; J1200; J7030 ×6; J2930 ×4; G0378 ×3

== ENCOUNTER 2021-09-26 09:15 | Emergency (ER) | payer OTHER ==
--- OUTSIDE RECORDS SUMMARY | 2021-09-26 09:19 | XMS REPORT | Continuity of Care Document ---
:1990 Author Organization [facility] t Address [address] [place] [address] Care Team Providers Name Role Phone Curt Afsaneh Primary Care Physician Lynette PRECIADO, T Attending Clinician Unavailable Only, Db Test Attending Clinician Unavailable David BRACER Attending Clinician DAVID Attending Clinician Unavailable Payers Payer Name Policy Type Policy Number Effective Date Expiration Date S ource Problems This patient has no known problems. Allergies, Adverse Reactions, Alerts Allergy Allergy Status Severity Reaction(s) Onset Inactive Treating Comm ents Source Name Type Date Date Clinician NO KNOWN Drug Active Univers ALLERGIE Class ity of S [facility] Social History Social Habit Start Date Stop Date Quantity Comments Source Exposure to Yes [facility] SARS-CoV-2 (event) Medica l Branch Sex Assigned At [birth year] [facility] 00:00:00 00:00:00 [facility] Smoking Status Start Date Stop Date Source Unknown if ever smoked [facility] Medications Ordered Filled Start Stop Current Ordering Indication Dosage Frequency Signature Comments Components Source Medication Medication Date Date Medication? Clinician (SIG) Name Name No known 2020-07 No Univers medications 2-27 ity of 10:19: [address] Branch No known 2020-07 No Univers medications 2-27 ity of 10:19: [address] Procedures This patient has no known procedures. Encounters Start End Encounter Admission Attending Care Care Encounter Source Date/Time Date/Time Type Type Clinicians Facility Department ID 2021-07-12 2021-07-12 Letter MCKENZIE Ojeda [id number] Univers 00:00:00 00:00:00 (Out) Gosia FITZGERALD [id number] it y of [facility] [id number] Dexter as [phone] [address] 2021-07-11 2021-07-11 Laboratory Only, Ang Db Test [facility] 1.2.8 [id number] [id number] Univers 09:45:00 10:00:00 [facility] [id number] ity [facility] [id number] Dexter as JANICE?BLEA [id number] [address] MEDICAL OFFICE BUILDING 2021-07-11 2021-07-11 Outpatient [facility] [id number] Univers 09:45:00 09:45:00 [id number] y [facility] 2021-07-11 2021-07-11 Outpatient R DAVID [facility] [id number] Univers 09:45:00 09:45:00 ANGELY rose o f [facility] 2020-03-02 2020-03-02 Outpatient R [facility] [id number] Univers 08:20:00 08:20:00 [facility] Results This patient has no known results.
[2021-09-26] MEDS ORDERED: NA CHLORIDE 0.9% 1,000 ML ONE (09:26)
[2021-09-26] MEDS ORDERED: FAMOTIDINE 20 MG/2 ML VIAL IV ONE (09:26)
[2021-09-26] MEDS ORDERED: METHYLPREDNISOLONE 125 MG INJ ONE (09:26)
--- NOTE | 2021-09-26 11:32 | EDPHYS ---
Physician Documentation [facility] Name: Will Solano Age: 30 yrs Sex: Male : 1990 Arrival Date: 09/26/2021 Time: 09:16 Bed 5 Private MD: ED Physician Jimbo Real HPI: 09/26 13:31 This 30 yrs old Male presents to ER via Wheelchair with complaints of Allergic Reaction.kdr 13:31 The patient presents with diffuse swelling, itching, rash, redness of skin. Onset: The kdr symptoms/episode began/occurred suddenly, just prior to arrival. Associated signs and symptoms: Pertinent positives: hives, light headed. Possible causes: The patient has no known obvious cause for the symptoms. At home the patient or guardian has treated the symptoms with Benadryl, steroids. Severity of symptoms: At their worst the symptoms were mild in the emergency department the symptoms are unchanged. The patient has experienced similar episodes in the past, a few times. Patient presents today with an acute allergic reaction. He states that he was on his toilet attempting to have a BM when he started to feel the symptoms. He states that overall he has had about 1 months worth of intermittent episodes of varying degree of apparent allergic reactions. Recently he has been to the ED 2 times previously for similar problems. His symptoms do not appear to be worsening arm or more severe but they do appear more persistent. The patient does not appear in any acute distress at the time of arrival. Historical: - Allergies: 09:29 PENICILLINS; jg9 - PMHx: 09:29 Hypertensive disorder; jg9 - Immunization history:: Adult Immunizations up to date. - Social history:: Smoking status: Patient denies any tobacco usage or history of. ROS: 13:31 Constitutional: Negative for fever, chills, and weight loss, Eyes: Negative for injury, kdr pain, redness, and discharge, Neck: Negative for injury, pain, and swelling, Cardiovascular: Negative for chest pain, palpitations, and edema, Respiratory: Negative for shortness of breath, cough, wheezing, and pleuritic chest pain, Abdomen/GI: Negative for abdominal pain, nausea, vomiting, diarrhea, and constipation, Back: Negative for injury and pain, : Negative for injury, bleeding, discharge, and swelling, MS/Extremity: Negative for injury and deformity, Skin: Negative for injury, rash, and discoloration, Neuro: Negative for headache, weakness, numbness, tingling, and seizure activity. Psych: Negative for depression, anxiety, suicide ideation, homicidal ideation, and hallucinations, Endocrine: Negative for neck swelling, polydipsia, polyuria, polyphagia, and marked weight changes, Hematologic/Lymphatic: Negative for swollen nodes, abnormal bleeding, and unusual bruising. 13:31 Constitutional: Positive for fatigue. Exam: 13:31 Constitutional: This is a well developed, well nourished patient who is awake, alert, kdr and in no acute distress. 13:31 Head/face: Noted is erythema, that is severe, of the top of head, left samaritan and face. Vital Signs: 09:15 BP 149 / 90; Pulse 90; Resp 20; Pulse Ox 100% on R/A; jg9 09:25 BP 149 / 90; Pulse 91; Resp 17; Temp 98.6; Pulse Ox 100% ; Weight 108.86 kg; Height 6 jl7 ft. 1 in. (185.42 cm); Pain 0/10; 10:45 BP 135 / 89; Pulse 78; Resp 17 S; Pulse Ox 100% on R/A; jg9 11:15 BP 145 / 98; Pulse 80; Resp 17 S; Pulse Ox 100% on R/A; jg9 09:25 Body Mass Index 31.66 (108.86 kg, 185.42 cm) jl7 Jessica Coma Score: 09:15 Eye Response: spontaneous(4). Verbal Response: oriented(5). Motor Response: obeys jg9 commands(6). Total: 15. MDM: 11:31 Patient medically screened. kdr 13:31 Data reviewed: vital signs, nurses notes, lab test result(s), radiologic studies. kdr Counseling: I had a detailed discussion with the patient and/or guardian regarding: the historical points, exam findings, and any diagnostic results supporting the discharge/admit diagnosis, the need for outpatient follow up. Medical screen evaluation completed. [facility] emergency medical condition absent. 09/26 11:22 Order name: IV Saline Lock; Complete Time: 11:22 jl7 Administered Medications: 09:15 Drug: NS 0.9% 1000 ml Route: IV; Rate: 1 bolus; Site: right antecubital; jl7 11:00 Follow up: IV Status: Completed infusion; IV Intake: 1000ml jg9 09:15 Drug: Pepcid (famotidine) 20 mg Route: IVP; Site: right antecubital; jl7 11:21 Follow up: Response: No adverse reaction; Marked relief of symptoms jg9 09:17 Drug: SOLU-Medrol (methylPrednisoLONE) 125 mg Route: IVP; Site: right antecubital; jl7 11:22 Follow up: Response: No adverse reaction; Marked relief of symptoms jg9 11:16 CANCELLED (wrong orderr): SOLU-Medrol (methylPREDNISolone sodium succinate) 125 mg IM jl7 once Disposition Summary: 09/26/21 11:31 Discharge Ordered Location: Home kdr Problem: an acute exacerbation kdr Symptoms: have improved kdr Condition: Stable kdr Diagnosis - Allergy, unspecified kdr Followup: kdr - With: Private Physician - When: 2 - 3 days - Reason: If symptoms return, Further diagnostic work-up, Recheck today's complaints, Continuance of care, Re-evaluation by your physician Discharge Instructions: - Discharge Summary Sheet kdr - Allergies, Adult, [id number] kdr Forms: - Medication Reconciliation Form kdr - Thank You Letter kdr - Antibiotic Education kdr - Prescription Opioid Use kdr Signatures: Jimbo Real MD MD kdr Juventino Jeffers RN RN jl7 Jackie Haider RN RN jg9 Corrections: (The following items were deleted from the chart) 11:16 11:14 SOLU-Medrol (methylPREDNISolone sodium succinate) 125 mg IM once ordered. jl7 jl7
--- NOTE | 2021-09-26 11:32 | ER ---
Nurse's Notes [facility] Name: Will Solano Age: 30 yrs Sex: Male : 1990 Arrival Date: 09/26/2021 Time: 09:16 Bed 5 Private MD: Diagnosis: Allergy, unspecified Presentation: 09/26 09:25 Chief complaint: Patient states: Went to the bathroom for a BM and skin started itching jl7 and turning red, felt like my tongue was swelling a little, took 2 Benadryl and 20 mg of Prednisone. Pt reports this happening last week and it developed to anaphylaxis. Coronavirus screen: At this time, the client does not indicate any symptoms associated with coronavirus-19. Ebola Screen: No symptoms or risks identified at this time. Onset: The symptoms/episode began/occurred suddenly, 20 minute(s) ago. Anaphylaxis evaluation, the patient reports or I have noted the following symptoms which indicate a significant risk of anaphylaxis: angioedema urticaria. Initial Sepsis Screen: Does the patient meet any 2 criteria? No. Patient's initial sepsis screen is negative. Does the patient have a suspected source of infection? No. Patient's initial sepsis screen is negative. Risk Assessment: Do you want to hurt yourself or someone else? Patient reports no desire to harm self or others. Onset of symptoms was September 26, 2021 at 08:55. Care prior to arrival: Medication(s) given: Prednisone and Benadryl. 09:25 Method Of Arrival: Ambulatory jl7 09:25 Method Of Arrival: Wheelchair jl7 09:25 Acuity: ELLEN 2 jl7 Triage Assessment: 09:25 General: Appears distressed, uncomfortable, Behavior is calm, cooperative, appropriate jl7 for age. Pain: Denies pain. Neuro: Level of Consciousness is awake, alert, obeys commands, Oriented to person, place, time, situation. Cardiovascular: Patient's skin is warm and dry. Rhythm is regular Chest pain is denied. Respiratory: Airway is patent Respiratory effort is even, unlabored, Respiratory pattern is regular, symmetrical, Denies shortness of breath. Derm: Skin is dry, Skin is red, Skin temperature is warm Rash noted that is urticaria. Musculoskeletal: Swelling noted to bilateral earlobes. Historical: - Allergies: 09:29 PENICILLINS; jg9 - PMHx: 09:29 Hypertensive disorder; jg9 - Immunization history:: Adult Immunizations up to date. - Social history:: Smoking status: Patient denies any tobacco usage or history of. Screenin:29 Abuse screen: Denies threats or abuse. Denies injuries from another. Nutritional jg9 screening: No deficits noted. Tuberculosis screening: No symptoms or risk factors identified. Fall Risk None identified. Assessment: 09:29 Pain: Denies pain. Respiratory: Airway is patent Respiratory effort is even, unlabored, jg9 Breath sounds are clear bilaterally. 09:29 General: Appears uncomfortable, Behavior is calm. Pain: Denies pain. Neuro: No deficits jg9 noted. Cardiovascular: No deficits noted. Respiratory: No deficits noted. GI: No deficits noted. : No deficits noted. EENT: No deficits noted. Derm: Skin urticaria on face, arms, abdomen and legs Reports itching. 10:48 Reassessment: Patient states feeling better. Patient states symptoms have improved. jg9 urticaria is clearing up, flushed face is improved. . Vital Signs: 09:15 BP 149 / 90; Pulse 90; Resp 20; Pulse Ox 100% on R/A; jg9 09:25 BP 149 / 90; Pulse 91; Resp 17; Temp 98.6; Pulse Ox 100% ; Weight 108.86 kg; Height 6 jl7 ft. 1 in. (185.42 cm); Pain 0/10; 10:45 BP 135 / 89; Pulse 78; Resp 17 S; Pulse Ox 100% on R/A; jg9 11:15 BP 145 / 98; Pulse 80; Resp 17 S; Pulse Ox 100% on R/A; jg9 09:25 Body Mass Index 31.66 (108.86 kg, 185.42 cm) jl7 Jessica Coma Score: 09:15 Eye Response: spontaneous(4). Verbal Response: oriented(5). Motor Response: obeys jg9 commands(6). Total: 15. ED Course: 09:15 Inserted saline lock: 18 gauge in right antecubital area, using aseptic technique. jg9 Blood collected. 09:16 Patient arrived in ED. as 09:18 Jimbo Real MD is Attending Physician. kdr 09:25 Arm band placed on right wrist. jl7 09:28 Haider, Jackie, RN is Primary Nurse. jg9 09:32 Triage completed. jl7 09:36 Patient has correct armband on for positive identification. Bed in low position. Call jg9 light in reach. 11:53 No provider procedures requiring assistance completed. jg9 11:53 IV discontinued. jg9 Administered Medications: 09:15 Drug: NS 0.9% 1000 ml Route: IV; Rate: 1 bolus; Site: right antecubital; jl7 11:00 Follow up: IV Status: Completed infusion; IV Intake: 1000ml jg9 09:15 Drug: Pepcid (famotidine) 20 mg Route: IVP; Site: right antecubital; jl7 11:21 Follow up: Response: No adverse reaction; Marked relief of symptoms jg9 09:17 Drug: SOLU-Medrol (methylPrednisoLONE) 125 mg Route: IVP; Site: right antecubital; jl7 11:22 Follow up: Response: No adverse reaction; Marked relief of symptoms jg9 11:16 CANCELLED (wrong orderr): SOLU-Medrol (methylPREDNISolone sodium succinate) 125 mg IM jl7 once Intake: 11:00 IV: 1000ml; Total: 1000ml. jg9 Outcome: 11:31 Discharge ordered by . kdr 11:53 Discharged to home ambulatory. jg9 11:53 Condition: stable 11:53 Discharge instructions given to patient, Instructed on discharge instructions, follow up and referral plans. Demonstrated understanding of instructions, follow-up care. 11:53 Patient left the ED. jg9 Signatures: Jimbo Real MD MD kdr Martinez, Amelia as Leal, Jahala, RN RN jl7 Jackie Haider, OZZY RN jg9
[2021-09-26 11:59] VITALS: O2SAT 100
[2021-09-26 12:00] VITALS: TEMP 98.6
[2021-09-26 12:02] VITALS: BP 145/98
--- NOTE | 2021-09-28 07:29 | EKG ---
Test Date: 2021-09-26 Test Time: 09:25:26 Heavy Equipment Rental Associate: EUNICE MEASUREMENT RESULTS: Intervals: Rate: 99 FL: 160 QRSD: 106 QT: 380 QTc: 487 Ensign: P: 59 FL: 160 QRS: 43 T: 49 INTERPRETIVE STATEMENTS: Normal sinus rhythm with sinus arrhythmia Prolonged QT Abnormal ECG Compared to ECG 09/21/2021 10:36:49 Prolonged QT interval now present Sinus bradycardia no longer present ST (T wave) deviation no longer present Electronically Signed On 09-28-21 07:23:11 CDT by Contreras Drake
== END 2021-09-26 11:53 | disposition home or self-care (01) ==
LOC: ER 09:15
DX: L50.9 Urticaria, unspecified (principal); R42 Dizziness and giddiness; R53.83 Other fatigue; I10 Essential (primary) hypertension; Z88.0 Allergy status to penicillin
CPT/HCPCS: 96361; 93005; 96375; 96374; 99284; J7030; J2930

== ENCOUNTER 2021-10-01 07:56 | Emergency (ER) | payer OTHER ==
--- OUTSIDE RECORDS SUMMARY | 2021-10-01 07:58 | XMS REPORT | Continuity of Care Document ---
:[address] [facility] t Address [address] [place] [address] Care Team Providers Name Role Phone Curt Afsaneh Primary Care Physician Lynette PRECIADO, T Attending Clinician Unavailable Only, Db Test Attending Clinician Unavailable David FILTER CHANGING TECHNICIAN Attending Clinician DAVID Attending Clinician Unavailable Payers Payer Name Policy Type Policy Number Effective Date Expiration Date S ource Problems This patient has no known problems. Allergies, Adverse Reactions, Alerts Allergy Allergy Status Severity Reaction(s) Onset Inactive Treating Comm ents Source Name Type Date Date Clinician NO KNOWN Drug Active Univers ALLERGIE Class ity of S [facility] Social History Social Habit Start Date Stop Date Quantity Comments Source Exposure to Yes [facility] SARS-CoV-2 (event) Medica l Branch Sex Assigned At [birth year] [facility] 00:00:00 00:00:00 [facility] Smoking Status Start Date Stop Date Source Unknown if ever smoked [facility] Medications Ordered Filled Start Stop Current Ordering Indication Dosage Frequency Signature Comments Components Source Medication Medication Date Date Medication? Clinician (SIG) Name Name No known 2020-07 No Univers medications 2-27 ity of 10:19: [address] Branch No known 2020-07 No Univers medications 2-27 ity of 10:19: [address] Procedures This patient has no known procedures. Encounters Start End Encounter Admission Attending Care Care Encounter Source Date/Time Date/Time Type Type Clinicians Facility Department ID 2021-07-12 2021-07-12 Letter MCKENZIE Ojeda [id number] Univers 00:00:00 00:00:00 (Out) Gosia FITZGERALD [id number] it y of [facility] [id number] Dexter as [id number] [address] 2021-07-11 2021-07-11 Laboratory Only, Ang Db Test [facility] 1.2.8 40.114 [id number] Univers 09:45:00 10:00:00 [facility] [id number] ity [facility] [id number] Dexter as JANICE?BLEA [id number] [address] MEDICAL OFFICE BUILDING 2021-07-11 2021-07-[address] [facility] [id number] Univers 09:45:00 09:45:00 [id number] [facility] 2021-07-11 2021-07-11 Outpatient R DAVID [facility] [id number] Univers 09:45:00 09:45:00 ANGELY rose o f [facility] 2020-03-02 2020-03-02 Outpatient R [facility] [id number] Univers 08:20:00 08:20:00 [facility] Results This patient has no known results.
[2021-10-01 08:28] LABS: Absolute Lymphocytes (CBC) 6.6 K/uL (0.7-4.9); Lymphocytes % 45.3 % (15.3-44.8); MPV 7.8 fL (7.6-11.3); RBC Red Blood Cell Count 5.16 M/uL (4.33-5.43)
[2021-10-01] MEDS ORDERED: DIPHENHYDRAMINE 50 MG/ML VIAL ONE (08:31)
[2021-10-01] MEDS ORDERED: METHYLPREDNISOLONE 125 MG INJ ONE (08:31)
[2021-10-01] MEDS ORDERED: FAMOTIDINE 20 MG/2 ML VIAL IV ONE (08:31)
[2021-10-01 08:46] LABS: ALT/SGPT 58 U/L (12-78); AST/SGOT 11 U/L (15-37); Albumin 4.1 g/dL (3.4-5.0); Alkaline Phosphatase 65 U/L (45-117); BUN Blood Urea Nitrogen 9 mg/dL (7-18); Bicarbonate 25 mmol/L (21-32); Bilirubin Total 0.9 mg/dL (0.2-1.0); Glucose Level 140 mg/dL (74-106); Protein, Total 7.7 g/dL (6.4-8.2); Sodium Level 139 mmol/L (136-145)
[2021-10-01] MEDS ORDERED: NA CHLORIDE 0.9% 1,000 ML ONE (08:56)
[2021-10-01] MEDS ORDERED: ALBUTEROL 2.5 MG/3 ML NEB SOL ONE (09:21)
[2021-10-01] MEDS ORDERED: EPINEPHRINE INH 0.5 ML VIAL IH ONE (09:22)
--- NOTE | 2021-10-01 11:39 | EDPHYS ---
Physician Documentation [facility] Name: Will Solano Age: 30 yrs Sex: Male : 1990 Arrival Date: 10/01/2021 Time: 07:56 Bed 14 Private MD: ED Physician Uday Montgomery HPI: 10/01 08:53 This 30 yrs old Male presents to ER via Ambulatory with complaints of Allergic Reaction.ma2 09:00 This 30 yrs old Male presents to ER via Ambulatory with complaints of Allergic Reaction.ma2 09:00 Patient has skin allergic reaction diffuse rash redness of face, he does not have any ma2 difficulty breathing or tongue swelling at this time.. Historical: - Allergies: 08:06 PENICILLINS; vg1 - Home Meds: 08:06 Prednisone Oral [Active]; desloratadine oral [Active]; Hydroxyzine Oral [Active]; vg1 - PMHx: 08:06 Hypertensive disorder; vg1 - Immunization history:: Client reports receiving the 2nd dose of the Covid vaccine. - Social history:: Smoking status: Patient denies any tobacco usage or history of. - Family history:: not pertinent. ROS: 09:00 Constitutional: Negative for fever, chills, and weight loss. ma2 09:00 All other systems are negative. Exam: 09:00 Constitutional: This is a well developed, well nourished patient who is awake, alert, ma2 and in no acute distress. Head/Face: Normocephalic, atraumatic. Eyes: Pupils equal round and reactive to light, extra-ocular motions intact. Lids and lashes normal. Conjunctiva and sclera are non-icteric and not injected. Cornea within normal limits. Periorbital areas with no swelling, redness, or edema. ENT: Nares patent. No nasal discharge, no septal abnormalities noted. Tympanic membranes are normal and external auditory canals are clear. Oropharynx with no redness, swelling, or masses, exudates, or evidence of obstruction, uvula midline. Mucous membranes moist. Neck: Trachea midline, no thyromegaly or masses palpated, and no cervical lymphadenopathy. Supple, full range of motion without nuchal rigidity, or vertebral point tenderness. No Meningismus. Chest/axilla: Normal chest wall appearance and motion. Nontender with no deformity. No lesions are appreciated. Cardiovascular: Regular rate and rhythm with a normal S1 and S2. No gallops, murmurs, or rubs. Normal PMI, no JVD. No pulse deficits. Respiratory: Lungs have equal breath sounds bilaterally, clear to auscultation and percussion. No rales, rhonchi or wheezes noted. No increased work of breathing, no retractions or nasal flaring. Abdomen/GI: Soft, non-tender, with normal bowel sounds. No distension or tympany. No guarding or rebound. No evidence of tenderness throughout. Skin: Diffuse rash, hives, consistent with allergic reaction. Otherwise skin is warm, dry with normal turgor. Normal color with no rashes, no lesions, and no evidence of cellulitis. MS/ Extremity: Pulses equal, no cyanosis. Neurovascular intact. Full, normal range of motion. Neuro: Awake and alert, GCS 15, oriented to person, place, time, and situation. Cranial nerves II-XII grossly intact. Motor strength 5/5 in all extremities. Sensory grossly intact. Cerebellar exam normal. Normal gait. Vital Signs: 08:02 BP 152 / 100; Pulse 115; Resp 22; Temp 97.9; Pulse Ox 100% ; Weight 104.33 kg; Height 6 vg1 ft. 1 in. (185.42 cm); Pain 0/10; 08:05 BP 139 / 92; Pulse 111; Resp 20; Pulse Ox 100% on R/A; ic1 10:40 BP 120 / 75; Pulse 92; Resp 18; Pulse Ox 99% ; ic1 11:09 BP 131 / 89; Pulse 91; Resp 16; Pulse Ox 98% on R/A; ic1 08:02 Body Mass Index 30.34 (104.33 kg, 185.42 cm) vg1 MDM: 07:59 Patient medically screened. ma2 09:00 Differential diagnosis: Mastocystosis non IgE mediated drug reaction urticaria, ma2 Vasovagal Reactions. Data reviewed: vital signs, nurses notes. Counseling: I had a detailed discussion with the patient and/or guardian regarding: the historical points, exam findings, and any diagnostic results supporting the discharge/admit diagnosis, the presence of at least one elevated blood pressure reading (>120/80) during this emergency department visit, the need for outpatient follow up. Response to treatment: the patient's symptoms have markedly improved after treatment. 09:02 ED course: Patient has prescription of prednisone 10 mg, which I advised him to ma2 continue, he also have Benadryl prescription and Pepcid. Which he took when he had similar reaction few days ago. Patient is scheduled to see an allergic specialist on Sunday after 2 days from now.. 10/01 08:19 Order name: CBC with Diff; Complete Time: 09:06 ma2 10/01 08:19 Order name: CMP; Complete Time: 09:06 ma2 Administered Medications: 08:40 Drug: MethylPrednisoLONE 125 mg Route: IVP; Site: right antecubital; ic1 08:41 Drug: Benadryl (diphenhydrAMINE) 50 mg Route: IVP; Site: right antecubital; ic1 08:41 Drug: Pepcid (famotidine) 20 mg Route: IVP; Site: right antecubital; ic1 08:55 Drug: NS 0.9% 1000 ml Route: IV; Rate: 1 bolus; Site: right antecubital; ic1 12:07 Follow up: IV Status: Completed infusion; IV Intake: 1000ml ic1 09:36 Not Given (Patient Refused): Albuterol 2.5 mg Inhalation every 20 minutes x3 ic1 09:36 Not Given (Patient Refused): Racemic EPINPHrine 0.5 ml Inhalation once ic1 Disposition Summary: 10/01/21 11:38 Discharge Ordered Location: Home ma2 Condition: Stable ma2 Diagnosis - Rash and other nonspecific skin eruption ma2 Followup: ma2 - With: Private Physician - When: Tomorrow - Reason: If symptoms return, Continuance of care Discharge Instructions: - Discharge Summary Sheet ma2 - Rash, Adult, [id number] ma2 Forms: - Medication Reconciliation Form ma2 - Thank You Letter ma2 - Antibiotic Education ma2 - Prescription Opioid Use ma2 Prescriptions: - Neurontin 300 mg Oral Capsule - take 1 capsule by ORAL route every 8 hours; 30 capsule; Refills: 0, Product ma2 Selection Permitted - ALBUTEROL INHALATION - inhale 1 puff by INHALATION route 3 times per day; 90 puff; Refills: 0, Product ma2 Selection Permitted - Albuterol Sulfate 2 mg/5 mL Oral Syrup - take 10 milliliters by ORAL route every 8 hours As needed; 300 milliliter; ma2 Refills: 0, Product Selection Permitted Signatures: Dispatcher [employer] Uday Rodriguez MD MD ma2 Clarisa Rabago RN RN vg1 Faith De Paz RN RN ic1
--- NOTE | 2021-10-01 11:39 | ER ---
Nurse's Notes [facility] Name: Will Solano Age: 30 yrs Sex: Male : 1990 Arrival Date: 10/01/2021 Time: 07:56 Bed 14 Private MD: Diagnosis: Rash and other nonspecific skin eruption Presentation: 10/01 08:02 Chief complaint: Patient states: 'having an allergic reaction and im unsure to what it vg1 is; nina seen a doctor for this to try and figure out what is causing this; this is about my 3rd or 4th visit here in the past three weeks bc of this issue'. Pt face appears to be red, states ears feel swollen and throat. States took 10 mg of Prednisone and 5 mg of Desloratadine prior to arrival and took 25 mg of hydroxizine last night. Coronavirus screen: Vaccine status: Patient reports receiving the 2nd dose of the covid vaccine. Client denies travel out of the [place] in the last 14 days. Ebola Screen: Patient negative for fever greater than or equal to 101.5 degrees Fahrenheit, and additional compatible Ebola Virus Disease symptoms. Onset: The symptoms/episode began/occurred this morning. Anaphylaxis evaluation, no signs or symptoms of anaphylaxis were noted. Initial Sepsis Screen: Does the patient meet any 2 criteria? RR > 20 per min. HR > 90 bpm. Yes. Risk Assessment: Do you want to hurt yourself or someone else? Patient reports no desire to harm self or others. Onset of symptoms was October 01, 2021. 08:02 Method Of Arrival: Ambulatory vg1 08:02 Acuity: ELLEN 3 vg1 11:45 Initial Sepsis Screen: Does the patient have a suspected source of infection? No. ic1 Patient's initial sepsis screen is negative. Triage Assessment: 08:06 General: Appears in no apparent distress. uncomfortable, Behavior is calm, cooperative. vg1 Pain: Denies pain. Derm: Rash noted that is red, on face. Historical: - Allergies: 08:06 PENICILLINS; vg1 - Home Meds: 08:06 Prednisone Oral [Active]; desloratadine oral [Active]; Hydroxyzine Oral [Active]; vg1 - PMHx: 08:06 Hypertensive disorder; vg1 - Immunization history:: Client reports receiving the 2nd dose of the Covid vaccine. - Social history:: Smoking status: Patient denies any tobacco usage or history of. - Family history:: not pertinent. Screenin:05 Abuse screen: Denies threats or abuse. Denies injuries from another. Nutritional ic1 screening: No deficits noted. Tuberculosis screening: No symptoms or risk factors identified. Fall Risk None identified. Assessment: 08:05 General: Appears uncomfortable, Behavior is cooperative, anxious. Pain: Denies pain. ic1 Neuro: Level of Consciousness is awake, alert, obeys commands, Oriented to person, place, time, situation. Neuro: Reports possible allergic rx that he has been dealing with x 3 weeks. States he experiences facial swelling every morning around this time. Denies throat swelling currently. Pt appears to be shaky. Airway patent, breathing unlabored, chest rise/fall symmetrical. . Cardiovascular: Rhythm is sinus tachycardia. Respiratory: Airway is patent Respiratory effort is even, unlabored, GI: No deficits noted. : No deficits noted. EENT: No deficits noted. Derm: No deficits noted. Musculoskeletal: No deficits noted. Vital Signs: 08:02 BP 152 / 100; Pulse 115; Resp 22; Temp 97.9; Pulse Ox 100% ; Weight 104.33 kg; Height 6 vg1 ft. 1 in. (185.42 cm); Pain 0/10; 08:05 BP 139 / 92; Pulse 111; Resp 20; Pulse Ox 100% on R/A; ic1 10:40 BP 120 / 75; Pulse 92; Resp 18; Pulse Ox 99% ; ic1 11:09 BP 131 / 89; Pulse 91; Resp 16; Pulse Ox 98% on R/A; ic1 08:02 Body Mass Index 30.34 (104.33 kg, 185.42 cm) vg1 ED Course: 07:56 Patient arrived in ED. as 07:59 Uday Montgomery MD is Attending Physician. ma2 08:04 Initial lab(s) drawn, by me, held in ED. Inserted saline lock: 20 gauge in right 5 antecubital area, using aseptic technique. Blood collected. 08:05 Faith De Paz, OZZY is Primary Nurse. ic1 08:05 No provider procedures requiring assistance completed. ic1 08:05 Patient has correct armband on for positive identification. Bed in low position. Call mh5 light in reach. Side rails up X 1. Warm blanket given. Pulse ox on. NIBP on. 08:06 Triage completed. vg1 08:06 Arm band placed on. 1 08:24 CMP Sent. 5 08:24 CBC with Diff Sent. 5 11:45 IV discontinued, intact, bleeding controlled, No redness/swelling at site. Pressure ic1 dressing applied. Administered Medications: 08:40 Drug: MethylPrednisoLONE 125 mg Route: IVP; Site: right antecubital; ic1 08:41 Drug: Benadryl (diphenhydrAMINE) 50 mg Route: IVP; Site: right antecubital; ic1 08:41 Drug: Pepcid (famotidine) 20 mg Route: IVP; Site: right antecubital; ic1 08:55 Drug: NS 0.9% 1000 ml Route: IV; Rate: 1 bolus; Site: right antecubital; ic1 12:07 Follow up: IV Status: Completed infusion; IV Intake: 1000ml ic1 09:36 Not Given (Patient Refused): Albuterol 2.5 mg Inhalation every 20 minutes x3 ic1 09:36 Not Given (Patient Refused): Racemic EPINPHrine 0.5 ml Inhalation once ic1 Intake: 12:07 IV: 1000ml; Total: 1000ml. ic1 Outcome: 11:38 Discharge ordered by . ma2 11:45 Discharged to ic1 11:45 Condition: stable 11:45 Discharge instructions given to patient, Instructed on discharge instructions, follow up and referral plans. Demonstrated understanding of instructions, follow-up care, medications, Prescriptions given X 1. 12:08 Patient left the ED. ic1 Signatures: Kimberly Mohan Maria 5 Uday Montgomery MD MD ma2 Clarisa Rabago, RN RN vg1 Faith De Paz RN RN ic1 Corrections: (The following items were deleted from the chart) 12:08 11:45 Discharge instructions given to patient, Instructed on discharge instructions, ic1 follow up and referral plans. Demonstrated understanding of instructions, follow-up care, medications, Prescriptions given X 3, ic1
[2021-10-01 12:36] VITALS: TEMP 97.9
[2021-10-01 12:40] VITALS: BP 131/89; O2SAT 98
== END 2021-10-01 12:08 | disposition home or self-care (01) ==
LOC: ER 07:56
DX: R21 Rash and other nonspecific skin eruption (principal); I10 Essential (primary) hypertension; Z88.0 Allergy status to penicillin
CPT/HCPCS: 96361; 85025; 36415; 80053; 96375; 96374; 99284; J1200; J7030; J2930

== ENCOUNTER 2021-10-05 14:55 | Emergency (ER) | payer OTHER ==
--- OUTSIDE RECORDS SUMMARY | 2021-10-05 14:59 | XMS REPORT | Continuity of Care Document ---
:1990 Author Organization [facility] t Address [address] [place] [address] Care Team Providers Name Role Phone Afsaneh Elias Primary Care Physician DEV Attending Clinician Unavailable Lynette PRECIADO T Attending Clinician Unavailable Only, Db Test Attending Clinician Unavailable David CHARHOUSE WORKER Attending Clinician DAVID Attending Clinician Unavailable Payers Payer Name Policy Type Policy Number Effective Date Expiration Date S ource OPEN ACCESS [id number] HMO/POS/EPO/PPO - [employer] Problems This patient has no known problems. Allergies, Adverse Reactions, Alerts Allergy Allergy Status Severity Reaction(s) Onset Inactive Treating Comm ents Source Name Type Date Date Clinician NO KNOWN Drug Active [facility] ALLERGIE Class ity of S [facility] Social History Social Habit Start Date Stop Date Quantity Comments Source Exposure to Yes [facility] SARS-CoV-2 (event) Medica l Branch Sex Assigned At [birth year] [facility] 00:00:00 00:00:00 [facility] Smoking Status Start Date Stop Date Source Unknown if ever smoked [facility] Medications Ordered Filled Start Stop Current Ordering Indication Dosage Frequency Signature Comments Components Source Medication Medication Date Date Medication? Clinician (SIG) Name Name No known 2020-07 No [facility] medications 2-27 ity of 10:19: [address] Branch No known 2020-07 No [facility] medications 2-27 ity of 10:19: [address] Procedures This patient has no known procedures. Encounters Start End Encounter Admission Attending Care Care Encounter Source Date/Time Date/Time Type Type Clinicians Facility Department ID 2021-10-04 2021-10-04 Outpatient FLETCHER MÉNDEZ [facility] [id number] [facility] [place] 13:18:43 15:25:23 Vickie contreras of Medicin e 2021-07-12 2021-07-12 Letter LynetteMCKENZIE contreras [id number] Univers 00:00:00 00:00:00 (Out) Gosia FITZGERALD [id number] it y of [facility] [id number] [place] as [id number] [address] 2021-07-11 2021-07-11 Laboratory Only, Ang Db Test [facility] [id number] Univers 09:45:00 10:00:00 Only Angely Roberson [facility] [id number] [facility] [id number] [place] as JANICE?BLEA [id number] [address] MEDICAL OFFICE [facility]ING 2021-07-11 2021-07-11 Outpatient R DAVID [facility] [id number] Univers 09:45:00 09:45:00 ANGELY rose o f [facility] 2021-07-11 2021-07-11 Outpatient [facility] [id number] Univers 09:45:00 09:45:00 [id number] [facility] 2020-03-02 2020-03-02 Outpatient R [facility] [id number] Univers 08:20:00 08:20:00 [facility] Results This patient has no known results.
[2021-10-05] MEDS ORDERED: METHYLPREDNISOLONE 125 MG INJ ONE (15:58)
[2021-10-05] MEDS ORDERED: DIPHENHYDRAMINE 50 MG/ML VIAL ONE (15:58)
[2021-10-05] MEDS ORDERED: FAMOTIDINE 20 MG/2 ML VIAL IV ONE (15:58)
[2021-10-05] MEDS ORDERED: NA CHLORIDE 0.9% 1,000 ML ONE (15:59)
--- NOTE | 2021-10-05 17:59 | ER ---
Nurse's Notes [facility] Name: Will Solano Age: 30 yrs Sex: Male : 1990 Arrival Date: 10/05/2021 Time: 14:56 Bed 10 Private MD: Diagnosis: Mastocytosis Presentation: 10/05 15:02 Chief complaint: Patient states: "I've been having allergic reactions lately. I finally ab2 was able to got to an allergy dr at [facility] and he thinks my body produces too much histamine so he started me on a bunch of antihistamines. 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 I did two nebulizers at home before coming." Pt c/o SOB, chest tightness and facial swelling. Coronavirus screen: Vaccine status: Patient reports receiving the 2nd dose of the covid vaccine. Client denies travel out of the [place] in the last 14 days. At this time, the client does not indicate any symptoms associated with coronavirus-19. Ebola Screen: Patient negative for fever greater than or equal to 101.5 degrees Fahrenheit, and additional compatible Ebola Virus Disease symptoms Patient denies exposure to infectious person. Patient denies travel to an Ebola-affected area in the 21 days before illness onset. No symptoms or risks identified at this time. Onset: The symptoms/episode began/occurred just prior to arrival. Anaphylaxis evaluation, the patient reports or I have noted the following symptoms which indicate a significant risk of anaphylaxis: chest pain shortness of breath. Initial Sepsis Screen: Does the patient meet any 2 criteria? No. Patient's initial sepsis screen is negative. Does the patient have a suspected source of infection? No. Patient's initial sepsis screen is negative. Risk Assessment: Do you want to hurt yourself or someone else? Patient reports no desire to harm self or others. Onset of symptoms is unknown. 15:02 Method Of Arrival: Ambulatory ab2 15:02 Acuity: ELLEN 3 ab2 Triage Assessment: 15:06 General: Appears in no apparent distress. uncomfortable, Behavior is calm, cooperative, ab2 appropriate for age. Pain: Denies pain. Cardiovascular: Reports. Respiratory: Reports shortness of breath Airway is patent Respiratory effort is even, unlabored, Respiratory pattern is regular, symmetrical. Historical: - Allergies: 15:48 PENICILLINS; ss7 - Home Meds: 15:48 losartan 25 mg Oral tab [Active]; fexofenadine 180 mg Oral tab 3 tab bid [Active]; ss7 famotidine 20 mg Oral tab 1 tab 2 times per day [Active]; ketotifen 2mg ophthalmic (eye) 1 tab 2 times per day [Active]; - PMHx: 15:48 Hypertensive disorder; ss7 - PSHx: 15:48 Unable to Obtain; ss7 - Immunization history:: Adult Immunizations. - Social history:: Smoking status: unknown. - Family history:: not pertinent. - Hospitalizations: : No recent hospitalization is reported. Screenin:48 Abuse screen: Denies threats or abuse. Nutritional screening: No deficits noted. ss7 Tuberculosis screening: No symptoms or risk factors identified. Fall Risk IV access (20 points). Assessment: 15:48 General: Appears in no apparent distress. Behavior is calm, cooperative, appropriate ss7 for age. Pain: Denies pain. Neuro: No deficits noted. Cardiovascular: Heart tones S1 S2. Respiratory: Airway is patent Breath sounds are clear bilaterally. GI: No deficits noted. : No deficits noted. EENT: No deficits noted. Derm: Rash noted that is red, urticaria. 16:04 Reassessment: Pt requests to speak with MD prior to receiving medications. SS. ss7 16:12 Reassessment: Per Emmanuel, hold benadryl. Proceed with remainder of medications. 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 Pt given ER Phone number to speak with Emmanuel. Will hold medications at patients request until both speak to each other. SS. Vital Signs: 15:02 BP 167 / 106; Pulse 114; Resp 22; Temp 100.3(TE); Pulse Ox 95% on R/A; Weight 74.84 kg; ab2 Height 6 ft. 1 in. (185.42 cm); Pain 0/10; 15:48 BP 133 / 78; Pulse 99; Resp 18; Pulse Ox 97% on R/A; ss7 17:54 BP 120 / 76; Pulse 95; Resp 18; Pulse Ox 100% on R/A; ss7 15:02 Body Mass Index 21.77 (74.84 kg, 185.42 cm) ab2 ED Course: 14:56 Patient arrived in ED. am2 15:06 Triage completed. ab2 15:06 Arm band placed on right wrist. ab2 15:27 Kevin Benitez MD is Attending Physician. rn 15:48 Jaye Aceves, OZZY is Primary Nurse. ss7 15:48 Patient has correct armband on for positive identification. Call light in reach. ss7 15:48 No provider procedures requiring assistance completed. Inserted saline lock: 20 gauge ss7 in right antecubital area, using aseptic technique. 17:54 Misc. Lab Test Sent. ss7 18:14 IV discontinued, intact. ss7 Administered Medications: 16:12 Not Given (Physician Discretion): Benadryl (diphenhydrAMINE) 50 mg IVP once ss7 16:30 Not Given (Duplicate Order): Pepcid (famotidine) 20 mg IVP once; dilute with 10 mL 0.9% rn NaCl; give over 2 minutes 17:13 Drug: SOLU-Medrol (methylPrednisoLONE) 125 mg Route: IVP; Site: right antecubital; ss7 18:15 Follow up: Response: No adverse reaction ss7 17:13 Drug: NS 0.9% 1000 ml Route: IV; Rate: 1000 ml; Site: right antecubital; ss7 17:54 Follow up: IV Status: Completed infusion ss7 18:15 Follow up: Response: No adverse reaction; IV Status: Completed infusion ss7 Outcome: 17:58 Discharge ordered by . rn 18:14 Discharged to home ambulatory. ss7 18:14 Condition: good 18:14 Discharge instructions given to patient, Instructed on discharge instructions, follow up and referral plans. Demonstrated understanding of instructions, follow-up care. 18:15 Patient left the ED. ss7 Signatures: Kevin Benitez MD MD rn Moreno, Amanda am2 Donald Mensah ab2 Jaye Aceves, OZZY RN ss7
--- NOTE | 2021-10-05 17:59 | EDPHYS ---
Physician Documentation [facility] Name: Will Solano Age: 30 yrs Sex: Male : 1990 Arrival Date: 10/05/2021 Time: 14:56 Bed 10 Private MD: ED Physician Kevin Benitez HPI: 10/05 16:18 This 30 yrs old Male presents to ER via Ambulatory with complaints of Allergic Reaction.rn 16:18 The patient presents with difficulty swallowing, itching, rash, redness of skin. Onset: rn The symptoms/episode began/occurred just prior to arrival. Associated signs and symptoms: Pertinent positives: abdominal pain, hives, rash, diarrhea, Pertinent negatives:. Possible causes:. At home the patient or guardian has treated the symptoms with respiratory inhaler. Severity of symptoms: At their worst the symptoms were moderate in the emergency department the symptoms have improved. The patient has not experienced similar symptoms in the past. The patient has been recently seen by a physician:. Pt reports multiple allergic reactions recently, just saw electrical wirer, told likely mast cell problem, is taking high dose antihistamines, today was indoors and eating a cupcake, began to feel like throat was scratchy and thought might get worse, used inhaler with alleviation of symptoms, now just with rash to skin. Also had abd cramping and diarrhea. . Historical: - Allergies: 15:48 PENICILLINS; ss7 - Home Meds: 15:48 losartan 25 mg Oral tab [Active]; fexofenadine 180 mg Oral tab 3 tab bid [Active]; ss7 famotidine 20 mg Oral tab 1 tab 2 times per day [Active]; ketotifen 2mg ophthalmic (eye) 1 tab 2 times per day [Active]; - PMHx: 15:48 Hypertensive disorder; ss7 - PSHx: 15:48 Unable to Obtain; ss7 - Immunization history:: Adult Immunizations. - Social history:: Smoking status: unknown. - Family history:: not pertinent. - Hospitalizations: : No recent hospitalization is reported. ROS: 16:18 Constitutional: Negative for fever, chills, and weight loss, Eyes: Negative for injury, rn pain, redness, and discharge, Neck: Negative for injury, pain, and swelling, Cardiovascular: Negative for chest pain, palpitations, and edema, Respiratory: Negative for cough, wheezing, and pleuritic chest pain, Abdomen/GI: Negative for nausea, vomiting, and constipation, Back: Negative for injury and pain, : Negative for injury, bleeding, discharge, and swelling, MS/Extremity: Negative for injury and deformity, Skin: Negative for injury, rash, and discoloration, Neuro: Negative for headache, weakness, numbness, tingling, and seizure. Exam: 16:18 Constitutional: This is a well developed, well nourished patient who is awake, alert, rn and in no acute distress. Head/Face: Normocephalic, atraumatic. Eyes: Periorbital areas with no swelling, redness, or edema. ENT: No stridor Cardiovascular: Regular rate and rhythm. No pulse deficits. Respiratory: Speaking full sentences, unlabored. No increased work of breathing, no retractions or nasal flaring. Skin: Warm, dry, + diffuse erythema of skin, no bullae MS/ Extremity: Pulses equal, no cyanosis. Neuro: Awake and alert, GCS 15 Vital Signs: 15:02 BP 167 / 106; Pulse 114; Resp 22; Temp 100.3(TE); Pulse Ox 95% on R/A; Weight 74.84 kg; ab2 Height 6 ft. 1 in. (185.42 cm); Pain 0/10; 15:48 BP 133 / 78; Pulse 99; Resp 18; Pulse Ox 97% on R/A; ss7 17:54 BP 120 / 76; Pulse 95; Resp 18; Pulse Ox 100% on R/A; ss7 15:02 Body Mass Index 21.77 (74.84 kg, 185.42 cm) ab2 MDM: 15:27 Patient medically screened. rn 16:06 ED course: Pt states feeling better, doesn't want benadryl, states already taking a lot rn of antihistamines, will give steroids and pepcid. . 17:56 Differential diagnosis: anaphylaxis, angioedema, Mastocystosis urticaria. Data rn reviewed: vital signs, nurses notes, and as a result, I will discharge patient. Counseling: I had a detailed discussion with the patient and/or guardian regarding: the historical points, exam findings, and any diagnostic results supporting the discharge/admit diagnosis, the need for outpatient follow up, to return to the emergency department if symptoms worsen or persist or if there are any questions or concerns that arise at home. Special discussion: I discussed with the patient/guardian in detail that at this point there is no indication for admission to the hospital. It is understood, however, that if the symptoms persist or worsen the patient needs to return immediately for re-evaluation. 17:57 ED course: Consulted with patient's electrical wirer, states ok to give steroids, would rn recommend continuation of antihistamines as just started them and receptors not saturated, and asked us to send tryptase for comparison to outpt level. Pt feels much better and return precautions given and understood. . 10/05 17:14 Order name: Misc. Lab Test; Complete Time: 18:15 ss7 10/05 15:41 Order name: IV Start; Complete Time: 16:12 rn Administered Medications: 16:12 Not Given (Physician Discretion): Benadryl (diphenhydrAMINE) 50 mg IVP once ss7 16:30 Not Given (Duplicate Order): Pepcid (famotidine) 20 mg IVP once; dilute with 10 mL 0.9% rn NaCl; give over 2 minutes 17:13 Drug: SOLU-Medrol (methylPrednisoLONE) 125 mg Route: IVP; Site: right antecubital; ss7 18:15 Follow up: Response: No adverse reaction ss7 17:13 Drug: NS 0.9% 1000 ml Route: IV; Rate: 1000 ml; Site: right antecubital; ss7 17:54 Follow up: IV Status: Completed infusion ss7 18:15 Follow up: Response: No adverse reaction; IV Status: Completed infusion ss7 Disposition Summary: 10/05/21 17:58 Discharge Ordered Location: Home rn Problem: an acute exacerbation rn Symptoms: have improved rn Condition: Stable rn Diagnosis - Mastocytosis rn Followup: rn - With: Private Physician - When: As needed - Reason: Recheck today's complaints, Re-evaluation by your physician Discharge Instructions: - Discharge Summary Sheet rn - Anaphylactic Reaction, Adult rn Forms: - Medication Reconciliation Form rn - Thank You Letter rn - Antibiotic returns processor - Prescription Opioid Use rn Signatures: Dispatcher [employer] Kevin Fraga MD MD rn Smith, Shana, RN RN ss7
[2021-10-05 18:46] VITALS: TEMP 100.3
[2021-10-05 18:49] VITALS: BP 120/76; O2SAT 100
== END 2021-10-05 18:15 | disposition home or self-care (01) ==
LOC: ER 14:55
DX: D47.09 Other mast cell neoplasms of uncertain behavior (principal); I10 Essential (primary) hypertension; Z88.0 Allergy status to penicillin
CPT/HCPCS: 96361; 83520; 96374; 99283; J7030; J2930; J1200

== ENCOUNTER 2022-01-17 19:08 | Emergency (ER) | payer OTHER ==
--- NOTE | 2022-01-17 20:32 | ER ---
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 When it flares up it jb4 feels like an allergic reaction. I have been trying to ride this out at home and just needed to come be seen. Coronavirus screen: At this time, the client does not indicate any symptoms associated with coronavirus-19. Ebola Screen: No symptoms or risks identified at this time. Onset: The symptoms/episode began/occurred gradually. Anaphylaxis evaluation, no signs or symptoms of anaphylaxis were noted. Initial Sepsis Screen: Does the patient meet any 2 criteria? No. Patient's initial sepsis screen is negative. Does the patient have a suspected source of infection? No. Patient's initial sepsis screen is negative. Risk Assessment: Do you want to hurt yourself or someone else? Patient reports no desire to harm self or others. Onset of symptoms was January 17, 2022. Transition of care: patient was not received from another setting of care. 19:32 Method Of Arrival: Ambulatory [facility] 19:32 Acuity: ELLEN 3 jb4 Historical: - Allergies: 19:34 PENICILLINS; jb4 - Home Meds: 19:34 desloratadine Oral [Active]; famotidine 20 mg Oral tab 1 tab 2 times per day [Active]; jb4 fexofenadine 180 mg Oral tab 3 tab BID [Active]; ketotifen 2mg ophthalmic (eye) 1 tab 2 times per day [Active]; losartan 25 mg Oral tab [Active]; Flonase 50 mcg/actuation Nasal spsn [Active]; Hydroxyzine Oral [Active]; Prednisone Oral [Active]; - PMHx: 19:34 Hypertensive disorder; Mast cell degranulation; jb4 - Immunization history:: Adult Immunizations up to date. - Social history:: Smoking status: Patient denies any tobacco usage or history of. - Family history:: not pertinent. - Hospitalizations: : No recent hospitalization is reported. Screenin:35 Abuse screen: Denies threats or abuse. Nutritional screening: No deficits noted. jb4 Tuberculosis screening: No symptoms or risk factors identified. Fall Risk None identified. Assessment: 19:35 General: Appears in no apparent distress. comfortable, Behavior is calm, cooperative, jb4 appropriate for age. Pain: Denies pain. Neuro: Level of Consciousness is awake, alert, obeys commands, Oriented to person, place, time, situation. Cardiovascular: Patient's skin is warm and dry. Respiratory: Airway is patent Respiratory effort is even, unlabored, Respiratory pattern is regular, symmetrical. Derm: Skin is intact, Skin is pink, warm \T\ dry. Musculoskeletal: Circulation, motion, and sensation intact. Range of motion: intact in all extremities. Vital Signs: 19:32 BP 152 / 97; Pulse 105; Resp 16; Temp 98.3(O); Pulse Ox 99% on R/A; jb4 ED Course: 19:11 Patient arrived in ED. bp1 19:23 Kevin Benitez MD is Attending Physician. rn 19:32 Caleb Garcia, RN is Primary Nurse. jb4 19:34 Triage completed. jb4 19:34 Arm band placed on right wrist. jb4 19:35 Patient has correct armband on for positive identification. Bed in low position. Call jb4 light in reach. Side rails up X 1. 20:38 No provider procedures requiring assistance completed. Patient did not have IV access vc1 during this emergency room visit. Administered Medications: No medications were administered Medication: 19:35 VIS not applicable for this client. jb4 Outcome: 20:32 Discharge ordered by . rn 20:38 Discharged to home ambulatory. vc1 20:38 Condition: good 20:38 Discharge instructions given to patient, Instructed on discharge instructions, follow up and referral plans. 20:38 Patient left the ED. vc1 Signatures: Kevin Benitez MD MD rn Bryson, James, RN RN jb4 Angely Don bp1 Vicky Delong RN RN vc1 Corrections: (The following items were deleted from the chart) 19:36 19:32 BP 152 / 97; Pulse 105bpm; Resp 16bpm; Pulse Ox 99% RA; jb4 jb4
--- NOTE | 2022-01-17 20:32 | EDPHYS ---
Physician Documentation [facility] Name: Will Solano Age: 31 yrs Sex: Male : 1990 Arrival Date: 01/17/2022 Time: 19:11 Bed 30 Private MD: ED Physician Kevin Benitez HPI: 01/17 20:08 This 31 yrs old Male presents to ER via Ambulatory with complaints of Allergic rn Reaction, Shortness Of Breath, Abdominal Cramping. 20:08 The patient presents with abd cramping, dizziness. Onset: The symptoms/episode rn began/occurred just prior to arrival. Associated signs and symptoms: Pertinent positives: abdominal pain, Pertinent negatives: chest pain, fever, hives, rash, shortness of breath, swelling. Possible causes: mastocytosis/mast cell degranulation. At home the patient or guardian has treated the symptoms with Benadryl, respiratory inhaler. Severity of symptoms: At their worst the symptoms were mild in the emergency department the symptoms have improved. The patient has experienced similar episodes in the past. The patient has not recently seen a physician. 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 Is already taking a lot of antihistamines, sees allergy and immunology, and recently put on several different medications that seem to be helping. Used to get these every 5 days, now hasn't had one in months. Used to have syncope with episodes so came in to be safe even though is already back to baseline now. Took his nighttime dose of antihistamine early and used breathing treatment with improvement. . Historical: - Allergies: 19:34 PENICILLINS; jb4 - Home Meds: 19:34 desloratadine Oral [Active]; famotidine 20 mg Oral tab 1 tab 2 times per day [Active]; jb4 fexofenadine 180 mg Oral tab 3 tab BID [Active]; ketotifen 2mg ophthalmic (eye) 1 tab 2 times per day [Active]; losartan 25 mg Oral tab [Active]; Flonase 50 mcg/actuation Nasal spsn [Active]; Hydroxyzine Oral [Active]; Prednisone Oral [Active]; - PMHx: 19:34 Hypertensive disorder; Mast cell degranulation; jb4 - Immunization history:: Adult Immunizations up to date. - Social history:: Smoking status: Patient denies any tobacco usage or history of. - Family history:: not pertinent. - Hospitalizations: : No recent hospitalization is reported. ROS: 20:08 Constitutional: Negative for fever, chills, and weight loss, Eyes: Negative for injury, rn pain, redness, and discharge, ENT: Negative for injury, pain, and discharge, Neck: Negative for injury, pain, and swelling, Cardiovascular: Negative for chest pain, palpitations, and edema, Respiratory: Negative for shortness of breath, cough, wheezing, and pleuritic chest pain, Abdomen/GI: + abd cramping, neg for vomiting MS/Extremity: Negative for injury and deformity, Skin: Negative for injury, rash, and discoloration, Neuro: Negative for headache, weakness, numbness, tingling, and seizure. Exam: 20:08 Constitutional: This is a well developed, well nourished patient who is awake, alert, rn and in no acute distress. Head/Face: Normocephalic, atraumatic. Eyes: Periorbital areas with no swelling, redness, or edema. ENT: NO stridor, no swelling, uvula midline Cardiovascular: Regular rate and rhythm. No pulse deficits. Respiratory: No increased work of breathing, no retractions or nasal flaring. Abdomen/GI: Soft, non-tender Skin: Warm, dry with normal turgor. Normal color with no rashes, no lesions, and no evidence of cellulitis. MS/ Extremity: Pulses equal, no cyanosis. Neurovascular intact. Full, normal range of motion. Equal circumference. Neuro: Awake and alert, GCS 15 Vital Signs: 19:32 BP 152 / 97; Pulse 105; Resp 16; Temp 98.3(O); Pulse Ox 99% on R/A; jb4 MDM: 19:23 Patient medically screened. rn 20:30 Differential diagnosis: anaphylaxis, Mastocystosis. Data reviewed: vital signs, nurses rn notes, and as a result, I will discharge patient. Counseling: I had a detailed discussion with the patient and/or guardian regarding: the historical points, exam findings, and any diagnostic results supporting the discharge/admit diagnosis, the need for outpatient follow up, to return to the emergency department if symptoms worsen or persist or if there are any questions or concerns that arise at home. Special discussion: I discussed with the patient/guardian in detail that at this point there is no indication for admission to the hospital. It is understood, however, that if the symptoms persist or worsen the patient needs to return immediately for re-evaluation. Based on the history and exam findings, there is no indication for further emergent testing or inpatient evaluation. I discussed with the patient/guardian the need to see the inpatient nursing aide for further evaluation of the symptoms. ED course: Pt back to baseline by the time he came in, feels much better, took his own medication, and stable vitals. 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 Return precautions given and understood.. 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
[2022-01-17 21:12] VITALS: BP 152/97; TEMP 98.3; O2SAT 99
== END 2022-01-17 20:38 | disposition home or self-care (01) ==
LOC: ER 19:08
DX: D47.09 Other mast cell neoplasms of uncertain behavior (principal); I10 Essential (primary) hypertension; Z88.0 Allergy status to penicillin